=== PATIENT | male | born 1970 | race Caucasian/White ===

== ENCOUNTER 2020-06-24 09:25 | Outpatient (REF) | payer BC, SELFPAY | END 2020-06-24 09:26 | disposition home or self-care (01) | LOC: HO.LAB 09:25 | PROVIDERS: PCP Nurse Practitioner Family; Visit Provider Internal Medicine | DX: Z20.822 Contact with and (suspected) exposure to COVID-19 (principal) | CPT/HCPCS: 36415; C9803; U0003; U0005 ==

== ENCOUNTER 2020-07-06 13:09 | Outpatient (REF) | payer BC, SELFPAY ==
--- NOTE | ~2020-07-06 | XR_ITS ---
EXAMINATION: XR CHEST CLINICAL INFORMATION: Covid 19 COMPARISON: 04/28/2017 TECHNIQUE: 2 views of the chest were obtained. FINDINGS: The lungs are well expanded. There is no focal consolidation, edema, or effusion. No pneumothorax. The cardiomediastinal silhouette is within normal limits. No acute osseous abnormality. XR/XR chest 2V IMPRESSION: Clear lungs.
== END 2020-07-06 13:10 | disposition home or self-care (01) ==
LOC: HO.HMGCX 13:09
PROVIDERS: PCP Nurse Practitioner Family; Visit Provider Nurse Practitioner Family
DX: U07.1 COVID-19 (principal)
CPT/HCPCS: 71046

== ENCOUNTER 2020-07-21 10:30 | Outpatient (REF) | payer BC, SELFPAY ==
--- NOTE | ~2020-07-21 | XR_ITS ---
EXAMINATION: XR CHEST CLINICAL INFORMATION: U07.1 - COVID-19 COMPARISON: Chest radiographs 07/06/2020, 04/28/2017 TECHNIQUE: 2 views of the chest were obtained. FINDINGS: The lungs are clear. There is no airspace consolidation or groundglass opacity. The costophrenic sulci are well-defined. The heart is normal in size and the vascularity is normal. The hilar and mediastinal contours and bony structures are unremarkable. XR/XR chest 2V IMPRESSION: Unremarkable examination.
== END 2020-07-21 10:31 | disposition home or self-care (01) ==
LOC: HO.HMGCX 10:30
PROVIDERS: PCP Nurse Practitioner Family; Visit Provider Nurse Practitioner Family
DX: U07.1 COVID-19 (principal)
CPT/HCPCS: 71046

== ENCOUNTER 2020-09-22 14:00 | Outpatient (RCR) | payer BC, SELFPAY | END 2020-10-24 13:27 | disposition home or self-care (01) | LOC: HO.PT 14:00 | PROVIDERS: Visit Provider Orthopaedic Surgery | DX: M75.20 Bicipital tendinitis, unspecified shoulder (principal); M40.50 Lordosis, unspecified, site unspecified | CPT/HCPCS: 97014; 97110; 97112; 97140; 97161; 97530 ==

== ENCOUNTER 2020-12-03 09:39 | Outpatient (REF) | payer BC, SELFPAY ==
[2020-12-03 12:01] LABS: TSH reflex Free T4 1.04 uIU/mL (0.32-4.0)
[2020-12-03 12:05] LABS: Alanine Aminotransferase 48 U/L (0-40); Alkaline Phosphatase 78 U/L (39-117); Anion Gap 11 (12-20); Aspartate Amino Transferase 37 U/L (5-37); Bilirubin Total 0.5 mg/dL (0.0-1.0); Blood Urea Nitrogen 19 mg/dL (9-16); Calcium 9.1 mg/dL (8.4-10.2); Carbon Dioxide 28 mmol/L (22-29); Chloride 106 mmol/L (96-108); Cholesterol 192 mg/dL; Estimated Glomerular Filt Rate > 60; Glucose Fasting 92 mg/dL (60-99); HDL Cholesterol 30 mg/dL; LDL Cholesterol Calculated 128 mg/dl; Potassium 4.7 mmol/L (3.3-5.1); Sodium 140 mmol/L (135-145); Total Protein 6.8 g/dL (6.5-8.0); Triglycerides 170 mg/dL
[2020-12-03 14:13] LABS: Glucose Urine UA NEG (NEG); Leukocyte Esterase Urine NEG (NEG); Nitrite Urine NEG (NEG); Specific Gravity - Urine <= 1.005 (1.005-1.025); Urine Blood NEG (NEG); Urine Ketones NEG (NEG); Urine Protein NEG (NEG-TRACE)
[2020-12-03 14:15] LABS: Appearance Urine CLEAR; Color Urine YELLOW
== END 2020-12-03 09:40 | disposition home or self-care (01) ==
LOC: HO.HMGCLDS 09:39
PROVIDERS: PCP Nurse Practitioner Family; Visit Provider Nurse Practitioner Family
DX: R97.20 Elevated prostate specific antigen [PSA] (principal); E78.5 Hyperlipidemia, unspecified
CPT/HCPCS: 36415; 80053; 80061; 81003; 84443

== ENCOUNTER 2020-12-17 09:09 | Outpatient (REF) | payer BC, SELFPAY ==
--- NOTE | ~2020-12-17 | US_ITS ---
EXAMINATION: US ABDOMEN COMPLETE CLINICAL INFORMATION: Abnormal levels of other serum enzymes. COMPARISON: None TECHNIQUE: Real-time imaging of the abdominal viscera. FINDINGS: PANCREAS: Largely obscured by overlapping bowel gas. ABDOMINAL AORTA: The proximal, mid, and distal segments are normal in caliber. INFERIOR VENA CAVA: Visualized portions are normal. LIVER: There is diffuse increased liver parenchymal echogenicity. No focal hepatic mass is seen. The liver is normal in size and contour. No biliary ductal dilatation. GALLBLADDER: Normal. The gallbladder is physiologically distended without evidence of stones, sludge, polyps, wall thickening or pericholecystic fluid. COMMON BILE DUCT: Normal in caliber measuring 0.3 cm in diameter. RIGHT KIDNEY: At the lower pole, a 1.1 cm maximal diameter anechoic, simple cyst is seen. No hydronephrosis or renal calculi. The kidney measures 12.5 cm in maximum dimension. LEFT KIDNEY: Normal. No hydronephrosis. No renal calculi or focal parenchymal lesions. The kidney measures 12.7 cm in maximum dimension. SPLEEN: Normal. The spleen measures 11.4 cm in maximum dimension. FREE FLUID: None. US/US abdomen complete IMPRESSION: 1. There is generalized increase in hepatic echotexture, consistent with fatty infiltration or hepatocellular disease. Please correlate clinically. No focal hepatic mass or intrahepatic biliary dilatation is seen. 2. A simple right renal cyst is incidentally noted. 3. Technically limited ultrasound examination of the pancreas.
[2020-12-18 08:09] LABS: HBc Num1 0.07 S/CO (0.00-0.79); Hepatitis A Antibody IgM 0.15 Index (0-0.79); Hepatitis B Core Antibody Nonreactive (Nonreactive); Hepatitis B Surface Antigen Negative (Negative); ~HepC Num1 0.09 S/CO (0.00-0.79); ~Hepatitis A Antibody IgM Nonreactive (Nonreactive); ~Hepatitis C Antibody Nonreactive (Nonreactive)
[2020-12-18 08:18] LABS: HBS Num1 0.65 mIU/mL (0-7.99); ~Hepatitis B Surface Antibody NONREACTIVE (Nonreactive)
== END 2020-12-17 09:10 | disposition home or self-care (01) ==
LOC: HO.HMGCX 09:09
PROVIDERS: PCP Nurse Practitioner Family; Visit Provider Nurse Practitioner Family
DX: R74.8 Abnormal levels of other serum enzymes (principal)
CPT/HCPCS: 36415; 76700; 86704; 86706; 86709; 86803; 87340

== ENCOUNTER → 2021-02-05 15:12 | Outpatient (BNVA) | payer BC, SELFPAY | PROVIDERS: PCP Nurse Practitioner Family; Visit Provider Urology ==

== ENCOUNTER 2021-05-04 06:19 | Outpatient (REF) | payer BC, SELFPAY ==
[2021-05-04 08:23] LABS: Prostate Specific Antigen 6.64 ng/mL (<0.05-4.0)
[2021-05-07 20:52] LABS: Estradiol Ultra Sensitive 23 pg/mL (< OR = 29)
[2021-05-08 19:21] LABS: Testosterone, Free 86.9 pg/mL (35.0-155.0); Testosterone, Total 376 ng/dL (250-1100)
== END 2021-05-04 06:20 | disposition home or self-care (01) ==
LOC: HO.LAB 06:19
PROVIDERS: PCP Nurse Practitioner Family; Visit Provider Urology
DX: Z12.5 Encounter for screening for malignant neoplasm of prostate (principal); E29.1 Testicular hypofunction; R97.20 Elevated prostate specific antigen [PSA]
CPT/HCPCS: 36415; 82670; 84153; 84402; 84403

== ENCOUNTER 2021-05-07 13:40 | Outpatient (REF) | payer BC, SELFPAY ==
[2021-05-07 14:01] LABS: Binax Internal Control QC Valid; Binax Now Covid-19 Ag Negative (Negative)
== END 2021-05-07 13:41 | disposition home or self-care (01) ==
LOC: HO.HMGCLDS 13:40
PROVIDERS: Visit Provider Internal Medicine
DX: Z20.822 Contact with and (suspected) exposure to COVID-19 (principal); J06.9 Acute upper respiratory infection, unspecified
CPT/HCPCS: 36415

== ENCOUNTER → 2021-05-12 15:09 | Outpatient (BNVA) | payer BC, SELFPAY | PROVIDERS: PCP Nurse Practitioner Family; Visit Provider Urology ==

== ENCOUNTER 2021-06-07 08:00 | Day surgery (SDC) | payer BC, SELFPAY ==
[2021-05-04 13:47] VITALS: BMI 29.8
--- NOTE | 2021-06-04 12:58 | P.CONAN_ITS ---
Documented by User: Radha Solorio NP 06/04/21 13:04 HPI - Anesthesia Eval Consult details Narrative: 50yo M for Upper Endoscopy and Colonoscopy [facility] Active Problems Active Problems: All Active Problems (Updated 05/07/21 @ 13:38 by Jatinder Camara MD) Upper respiratory tract infection (Acute) COVID-19 (Acute) Elevated PSA (Acute) Dyslipidemia (Acute) Screening for colon cancer (Acute) External hemorrhoids (Acute) Abnormal heart rhythm (Acute) Elevated liver enzymes (Acute) Hypogonadism in male (Acute) Past Medical History Medical History (Updated 06/07/21 @ 08:26 by Ivelisse Buenrostro RN) Alcohol abuse Anxiety and depression COVID-19 vaccine series completed Elevated cholesterol GERD (gastroesophageal reflux disease) History of COVID-19 Hx of prostatitis Family History Family History Sister Substance abuse Surgical History Surgical History Hx of shoulder surgery Social History Social History Are you a primary hearing healthcare practitioner to a significant other at home: No Do you presently have visiting nurse or other home services: No Patient Tobacco Use Status: Never used Tobacco e-Cigarette/Vaping Use: Never Used Second Hand Smoke Exposure: No Use of substances other than those prescribed or required for medical reasons: No Have you been hit, kicked, punched, or otherwise hurt by someone within the past year? If so, by whom?: No Are you DNR?: No Advance Directives: No Advance Directives Information Provided: Yes (brochure mailed) Advance Directives on File: No Recently lost weight without trying: No Eating poorly because of decreased appetite: No Nutrition Risks: No Nutritional Risk Poor oral hygiene: No Meds Allergies Allergy/AdvReac Type Severity Reaction Status Date / Time No Known Allergies Allergy Verified 05/07/21 13:21 [No Known Allergies*] Home Medications Medication Instructions Recorded Confirmed Last Taken Type alprazolam 0.5 mg 0.5 mg PO BID 12/02/20 05/04/21 Unknown History tablet PRN sertraline 100 mg 100 mg PO DAILY 12/02/20 05/04/21 Unknown History tablet Exam Exam Date and Time: June 04, 2021 1258 Height,Weight and Vital Signs: Height 6 ft Weight 99.79 kg Pertinent Lab Results Pertinent Lab Results: Laboratory Tests 02/08/19 12/03/20 06:45 09:43 WBC 9.2 Hgb 15.7 Hct 47.3 Plt Count 221 Sodium 140 Potassium 4.7 Chloride 106 Carbon Dioxide 28 BUN 19 H Creatinine 1.01 Narrative Narrative: EKG 11/2020 NSR @ 65 Assessment and Plan Assessment Anesthesia Assessment: Chart Reviewed Documented by User: Narinder Caballero 06/07/21 09:56 PMFSH Past Medical History Medical History (Updated 06/07/21 @ 08:26 by Ivelisse Buenrostro RN) Alcohol abuse Anxiety and depression COVID-19 vaccine series completed Elevated cholesterol GERD (gastroesophageal reflux disease) History of COVID-19 Hx of prostatitis Family History Family History Sister Substance abuse Family history of problems with anesthesia: No Surgical History Surgical History Hx of shoulder surgery History of Problems with Anesthesia: No Social History Social History Are you a primary hearing healthcare practitioner to a significant other at home: No Do you presently have visiting nurse or other home services: No Patient Tobacco Use Status: Never used Tobacco e-Cigarette/Vaping Use: Never Used Second Hand Smoke Exposure: No Use of substances other than those prescribed or required for medical reasons: No Have you been hit, kicked, punched, or otherwise hurt by someone within the past year? If so, by whom?: No Are you DNR?: No Advance Directives: No Advance Directives Information Provided: Yes (brochure mailed) Advance Directives on File: No Recently lost weight without trying: No Eating poorly because of decreased appetite: No Nutrition Risks: No Nutritional Risk Poor oral hygiene: No Meds Allergies Allergy/AdvReac Type Severity Reaction Status Date / Time No Known Allergies Allergy Verified 05/07/21 13:21 [No Known Allergies*] Home Medications Medication Instructions Recorded Confirmed Last Taken Type alprazolam 0.5 mg 0.5 mg PO BID 12/02/20 05/04/21 Unknown History tablet PRN sertraline 100 mg 100 mg PO DAILY 12/02/20 05/04/21 Unknown History tablet Exam Airway Mallampati Class: II TM Dist: >3cm Neck ROM: Full Heart: rrr Lungs: bl breath sounds Assessment and Plan Assessment Anesthesia Assessment: Anesthesia Plan Discussed Final Anesthetic Review Family History of Problems with Anesthesia: No History of Problems with Anesthesia: No NPO: Yes Final Preanesthetic Review: Anes Risks/Benef Reviewed Patient Risk: Intermediate Procedure Risk: Intermediate Anesthetic Plan Anesthetic Plan: MAC: Disposition: Standard PACU
[2021-06-07 08:09] VITALS: BP 108/68; PULSE 81; RESP 18; TEMP 36; O2SAT 99
[2021-06-07] MEDS: Lactated Ringers 1,000 ML 100 ML IVCONT (08:48)
[2021-06-07 10:52] VITALS: BP 95/52; PULSE 70; RESP 18; TEMP 36.1; O2SAT 98
--- NOTE | 2021-06-07 10:54 | PM.OP ---
Brief Operative Note Date of Service: 06/07/21 Pre-op diagnosis: GERD, Screening Post-op diagnosis: other (Hiatal hernia, colon polyp) Procedure: EGD with biopsies, Colonoscopy to the cecum and TI with hot snare polypectomy Surgeon: Mike Aguila Anesthesia: MAC Was an Seal Extrusion Operator used for this Procedure?: No Estimated blood loss (mL): 2.0 Pathology: other (A. EG Junction at 35cm B. Colon polyp at 30cm) Condition: stable Disposition: PACU
[2021-06-07 11:07] VITALS: BP 105/63; PULSE 72; RESP 18; O2SAT 98
[2021-06-07 11:22] VITALS: BP 119/78; PULSE 74; RESP 18; TEMP 36.7; O2SAT 98
--- NOTE | 2021-06-07 21:16 | OP_ITS ---
SURGEON: Mike Aguila MD INDICATIONS: The patient presents for evaluation of gastroesophageal reflux and colorectal cancer screening. Full consent has been obtained from him for this, including risks of bleeding and perforation. PREOPERATIVE DIAGNOSIS: Gastroesophageal reflux and colorectal cancer screening. POSTOPERATIVE DIAGNOSIS: PROCEDURE PERFORMED: Esophagogastroduodenoscopy with biopsies and colonoscopy to the cecum and terminal ileum with hot snare polypectomy. ESTIMATED BLOOD LOSS: COMPLICATIONS: ANESTHESIA: Medication used, monitored anesthesia care. ASSISTANTS: SPECIMENS: POSTOPERATIVE DIAGNOSES: Gastroesophageal reflux and colorectal cancer screening, hiatal hernia, colon polyp, diverticulosis, and internal and external hemorrhoids. DESCRIPTION OF PROCEDURE: The patient was placed in the left lateral decubitus position. The Olympus video gastroscope was passed in the posterior oropharynx and upper esophagus under direct vision. The scope was passed slowly to the distal esophagus. The gastroesophageal junction appeared at 35 cm. There was some slight irregularity and erythema, but no evidence of esophagitis nor Donaldson's esophagus. The scope entered into the stomach. There was a moderate-sized hiatal hernia. The hiatal hernia mucosa appeared normal. The scope was advanced to pylorus and the duodenum was cannulated to the descending portion. The duodenum including the bulb appeared normal without mass or ulceration. The scope was withdrawn back in the stomach. The gastric antrum and body appeared normal with good peristalsis. Scope was retroflexed visualizing the proximal stomach carefully, which appeared normal, without any sign of mass or ulceration. The scope was straightened and withdrawn back to the esophagus. Biopsies were obtained at the EG junction at 35 cm. Proximal to this, the esophageal mucosa appeared normal. The scope was withdrawn from the patient. He was turned around for the colonoscopy. The digital rectal exam revealed external hemorrhoidal tissue. The Olympus video pediatric colonoscope was entered into the rectum and advanced easily to the cecum. Once in the cecum, I did identify normal-appearing cecal pouch with appendiceal orifice and a normal-appearing ileocecal valve. The terminal ileum was cannulated and appeared normal. The scope was withdrawn back in the colon. The entire cecum and ileocecal valve appeared normal. The scope was slowly withdrawn assessing all mucosal surfaces carefully. Preparation was excellent. At 30 cm, was an approximately 6 mm polyp, which was removed with a hot snare polypectomy and recovered by suction. The polypectomy site appeared clean, without any sign of residual polyp nor bleeding. I did not visualize any other polyps, colitis, or angiodysplasia. There was a mild amount of sigmoid diverticulosis. In the rectum, the scope was retroflexed visualizing internal hemorrhoids, but no other pathology. The rectal mucosa appeared normal. The scope was straightened and withdrawn from the patient. He tolerated both procedures well and was returned to the recovery area in stable condition. IMPRESSION: 1. Hiatal hernia, gastroesophageal reflux. 2. Colon polyp. 3. Diverticulosis. 4. Internal hemorrhoids. 5. External hemorrhoids. PLAN: The results of the pathology will be checked. If the colon polyp is a tubular adenoma, I would recommend a followup colonoscopy in 5 years. He will continue to use omeprazole as needed for symptomatic control of reflux. As long as things are stable, I do not think he needs to be on it every day. He was advised not to use any aspirin and NSAIDs for 1 week. MD BLAIR Bravo/AQUILES / [phone] MTDJeremy
== END 2021-06-07 11:58 | disposition home or self-care (01) ==
PROVIDERS: PCP Nurse Practitioner Family; Visit Provider Internal Medicine
PROC: (CPT 45385; principal; 2021-06-07 09:10)
DX: Z12.11 Encounter for screening for malignant neoplasm of colon (principal); K63.5 Polyp of colon; K57.30 Diverticulosis of large intestine without perforation or abscess without bleeding; K64.8 Other hemorrhoids; K21.9 Gastro-esophageal reflux disease without esophagitis; K44.9 Diaphragmatic hernia without obstruction or gangrene; F32.9 Major depressive disorder, single episode, unspecified; Z79.51 Long term (current) use of inhaled steroids; Z79.899 Other long term (current) drug therapy
CPT/HCPCS: 45385; 43239; 88305

== ENCOUNTER 2021-06-15 07:32 | Outpatient (REF) | payer BC, SELFPAY ==
[2021-06-15 07:43] VITALS: BP 105/66; PULSE 68; RESP 16; TEMP 36.2; O2SAT 98
[2021-06-15 07:44] VITALS: BMI 28.5
--- NOTE | 2021-06-22 13:43 | W.PM.OPN ---
Operative Note Operative Note Date of Service: 06/15/21 Narrative: Preoperative diagnosis: Elevated PSA Postoperative diagnosis: Elevated PSA Procedure: 1. transrectal ultrasound measurement of prostate 2. transrectal ultrasound-guided pudendal nerve block 3. transrectal ultrasound-guided prostate biopsy 12 core Surgeon: Dr. Sreedhar Valverde Anesthetic: Local Indications for procedure: Elevated PSA 6.4 Procedure: After informed consent was verified, the patient was brought into the procedure area and lay left-hand side down on the table. Patient identity confirmed. Perioperative antibiotics confirmed. Iodine 10cc with Gel was placed per rectum Ultrasound probe was placed per rectum The prostate was measured in 3 dimensions Total volume equals 45 gm There were no cystic structures and no calcifications noted and the prostate was homogeneous in nature A ultrasound-guided pudendal nerve block was performed using 10 cc of 1% lidocaine. 8 cc was placed at the base and 2 cc of the apex. A 12 core biopsy was performed with 6 cores each side. Two cores were taken at the apex, mid and base. Cores were spaced between lateral and medial. He tolerated the procedure well. Was able to ambulate to bathroom after 5 minutes. Printed instructions regarding antibiotic use and common side effects such as low-grade temperature and bleeding were given Pathology: 12 core prostate biopsy.
== END 2021-06-15 07:33 | disposition home or self-care (01) ==
LOC: HO.MS 07:32
PROVIDERS: PCP Nurse Practitioner Family; Visit Provider Urology
PROC: (CPT 55700; principal; 2021-06-15 08:00)
DX: C61 Malignant neoplasm of prostate (principal); R97.20 Elevated prostate specific antigen [PSA]
CPT/HCPCS: 55700; 76942; 88305; 88344

== ENCOUNTER → 2021-06-22 13:07 | Outpatient (BNVA) | payer BC, SELFPAY | PROVIDERS: PCP Nurse Practitioner Family; Visit Provider Urology ==

== ENCOUNTER 2021-07-29 06:29 | Outpatient (REF) | payer BC, SELFPAY ==
[2021-07-29 06:52] LABS: MANUAL DIFF FLAG NO
[2021-07-29 06:56] LABS: Basophils Absolute Auto 0.1 X10*3/uL (0.0-0.2); Basophils Percent Auto 0.8 % (0-2); Eosinophils Absolute Auto 0.4 X10*3/uL (0.0-0.4); Eosinophils Percent Auto 4.5 % (0-4); Hematocrit 42.8 % (42.0-52.0); Hemoglobin 14.4 g/dl (14.0-18.0); Imm Gran Abs Auto 0.02 X10*3/uL (0.00-0.03); Imm Gran Pct Auto 0.3 % (0.0-0.4); Lymphocytes Percent Auto 38.1 % (20-40); Mean Corpuscular HGB Conc 33.6 g/dl (31.0-36.0); Mean Corpuscular Hemoglobin 30.5 pg (27.0-33.0); Mean Corpuscular Volume 90.7 fL (80.0-98.0); Mean Platelet Volume 10.6 fL (9.4-12.4); Monocytes Absolute Auto 0.8 X10*3/uL (0.1-1.2); Neutrophils Absolute Auto 3.7 x10*3/uL (2.0-8.3); Neutrophils Percent Auto 46.3 % (45-73); Platelet Count 234 X10*3/uL (160-400); Red Blood Count 4.72 X10*6/uL (4.60-5.80); Red Cell Distribution Width 12.3 % (11.0-16.0)
[2021-07-29 07:21] LABS: Alanine Aminotransferase 35 U/L (0-40); Albumin Level 4.1 g/dL (3.5-5.0); Alkaline Phosphatase 90 U/L (39-117); Aspartate Amino Transferase 29 U/L (5-37); Bilirubin Direct < 0.2 mg/dL (0.0-0.5); Bilirubin Total 0.4 mg/dL (0.0-1.0); Cholesterol 227 mg/dL; HDL Cholesterol 31 mg/dL; LDL Cholesterol Calculated 144 mg/dl; Triglycerides 260 mg/dL
== END 2021-07-29 06:30 | disposition home or self-care (01) ==
LOC: HO.LAB 06:29
PROVIDERS: PCP Nurse Practitioner Family; Visit Provider Dermatology
DX: L70.0 Acne vulgaris (principal)
CPT/HCPCS: 36415; 80061; 80076; 85025

== ENCOUNTER 2021-10-14 06:34 | Outpatient (REF) | payer BC, SELFPAY ==
[2021-10-14 07:45] LABS: Alanine Aminotransferase 31 U/L (0-40); Albumin Level 4.4 g/dL (3.5-5.0); Alkaline Phosphatase 90 U/L (39-117); Anion Gap 11 (12-20); Aspartate Amino Transferase 33 U/L (5-37); Bilirubin Total 0.5 mg/dL (0.0-1.0); Blood Urea Nitrogen 22 mg/dL (9-16); Calcium 9.9 mg/dL (8.4-10.2); Carbon Dioxide 27 mmol/L (22-29); Chloride 106 mmol/L (96-108); Cholesterol 173 mg/dL; Estimated Glomerular Filt Rate > 60; Glucose Fasting 101 mg/dL (60-99); HDL Cholesterol 37 mg/dL; LDL Cholesterol Calculated 108 mg/dl; Potassium 4.6 mmol/L (3.3-5.1); Sodium 139 mmol/L (135-145); Total Protein 7.4 g/dL (6.5-8.0); Triglycerides 140 mg/dL
[2021-10-14 08:06] LABS: Prostate Specific Antigen 1.27 ng/mL (<0.05-4.0)
== END 2021-10-14 06:35 | disposition home or self-care (01) ==
LOC: HO.LAB 06:34
PROVIDERS: Absent Provider Urology; PCP Nurse Practitioner Family; Visit Provider Nurse Practitioner Family
DX: Z12.5 Encounter for screening for malignant neoplasm of prostate (principal); C61 Malignant neoplasm of prostate; E78.5 Hyperlipidemia, unspecified
CPT/HCPCS: 36415; 80053; 80061; 84153

== ENCOUNTER 2022-02-07 09:41 | Outpatient (REF) | payer BC, SELFPAY ==
[2022-02-08 10:37] LABS: Follicle Stimulating Hormone 7.4 mIU/mL (1.6-8.0)
[2022-02-11 22:21] LABS: Estradiol Ultra Sensitive 29 pg/mL (< OR = 29)
[2022-02-12 11:31] LABS: Testosterone, Free 93.3 pg/mL (35.0-155.0); Testosterone, Total 491 ng/dL (250-1100)
== END 2022-02-07 09:42 | disposition home or self-care (01) ==
LOC: HO.LAB 09:41
PROVIDERS: PCP Nurse Practitioner Family; Visit Provider Urology
DX: C61 Malignant neoplasm of prostate (principal)
CPT/HCPCS: 36415; 82670; 83001; 83002; 84153; 84402; 84403

== ENCOUNTER 2022-04-12 12:14 | Outpatient (REF) | payer BC, SELFPAY ==
[2022-04-12 11:19] VITALS: BMI 28.5
[2022-04-12 11:21] VITALS: BP 120/66; PULSE 64; RESP 16; TEMP 36.3; O2SAT 100
[2022-04-12 11:48] VITALS: BP 117/70; PULSE 63; RESP 16; O2SAT 100
--- NOTE | 2022-04-12 12:52 | P.OP_ITS ---
Operative Note Operative Note Date of Service: 04/12/22 Narrative: Preoperative diagnosis: Epidermal inclusion cysts of sternum Postoperative diagnosis: Same Procedure: Excision of epidermal inclusion cyst of sternum Surgeon: Benji Harris MD Hardwood Floor Layer: None Anesthesia: Sensorcaine 0.5% with epinephrine Indications for procedure: Enlarging epidermal inclusion cyst of sternum Operative findings: 1.5 cm epidermal inclusion cyst of sternum Specimen: Epidermal inclusion cyst Estimated blood loss: Less than 1 mL Complications: None Procedure details: Patient was brought to the minor surgery suite and placed in a supine position. The site of surgery was confirmed by the patient in the mid sternum. After assuring informed consent the skin was prepped Betadine and draped in a sterile fashion. Local anesthesia was then infiltrated around the lesion. Elliptical incision oriented longitudinally was then created with the scalpel. This was carried down through subcutaneous tissue up to the cyst wall. Sharp dissection was then used to dissect the cyst from the surrounding subcutaneous tissue. The lesion was removed intact and sent to pathology for further examination. After assuring hemostasis with light pressure, the skin was reapproximated using interrupted 3-0 Prolene sutures. Sterile dressings consisting of 2 x 2 gauze and Tegaderm were then applied. The patient tolerated the procedure well. He was discharged to home in stable condition.
== END 2022-04-12 12:15 | disposition home or self-care (01) ==
LOC: HO.MS 12:14
PROVIDERS: PCP Nurse Practitioner Family; Visit Provider Surgery
PROC: (CPT 11402; principal; 2022-04-12 11:30)
DX: L72.0 Epidermal cyst (principal)
CPT/HCPCS: 11402; 88304

== ENCOUNTER 2022-08-03 06:17 | Outpatient (REF) | payer BC, SELFPAY ==
[2022-08-03 08:35] LABS: Prostate Specific Antigen 1.75 ng/mL (<0.05-4.0)
== END 2022-08-03 06:18 | disposition home or self-care (01) ==
LOC: HO.LAB 06:17
PROVIDERS: PCP Nurse Practitioner Family; Visit Provider Urology
DX: Z12.5 Encounter for screening for malignant neoplasm of prostate (principal); C61 Malignant neoplasm of prostate
CPT/HCPCS: 36415; 84153

== ENCOUNTER → 2022-08-09 14:06 | Outpatient (BNVA) | payer BC, SELFPAY | PROVIDERS: PCP Nurse Practitioner Family; Visit Provider Urology | DX: Z13.89 Encounter for screening for other disorder (principal) ==

== ENCOUNTER 2022-12-09 06:20 | Outpatient (REF) | payer BC, SELFPAY ==
[2022-12-09 08:00] LABS: Blood Urea Nitrogen 18 mg/dL (9-16); Estimated Glomerular Filt Rate > 60
[2022-12-09 08:23] LABS: Prostate Specific Antigen 1.79 ng/mL (<0.05-4.0)
[2022-12-15 17:13] LABS: Testosterone, Total 446 ng/dL (250-1100)
== END 2022-12-09 06:21 | disposition home or self-care (01) ==
LOC: HO.LAB 06:20
PROVIDERS: PCP Nurse Practitioner Family; Visit Provider Urology
DX: Z12.5 Encounter for screening for malignant neoplasm of prostate (principal); R39.15 Urgency of urination; C61 Malignant neoplasm of prostate
CPT/HCPCS: 36415; 82565; 84153; 84403; 84520

== ENCOUNTER 2022-12-15 10:15 | Outpatient (AMB) | payer BC, SELFPAY ==
--- NOTE | 2022-12-15 10:22 | MHC.OFFVIS ---
Intake Intake Visit Reasons: 4m/MRI(No psa Dr Aware) Intake Note: Patient is present for Follow Up MRI/PSA Urology Med: Finasteride, Antibiotic Allergy:None Blood Thinner: None Pharmacy: [facility] Allergies No Known Allergies [No Known Allergies*] Allergy (Verified 12/15/22 10:29) HPI HPI Comments History of Present Illness Details Israel is a pleasant male. He is a patient with Dr Simon. He is seen for the following urologic conditions - elevated testosterone - elevated PSA - urinary urgency Continue good response to finasteride every other day Discussed MRI results with small volume prostate cancer location consistent with prior biopsy Main Current complaint urinary urge Trial daily tadalafil 02/16 Testosterone 1381, PSA 3.6 PSA 10/19 4.3, 05/22 6.6 T 376, 10/20 1.3, 02/19 1.3 T 500, 08/21 1.7, 12/21 1.8 T Pend Elevated PSA Discussion today regarding impact of testosterone stimulators on PSA Labs - 02/19 T 491 GIOVANY with boggy prostate Prostate Cancer - Low volume / cores, Low grade 3+3 - June [address] Valverde PSA at diagnosis 6.6, Volume 45g T1c 12/21 MRI - 35 g gland, 6 mm left peripheral apex lesion PI-RADS 4 - location consistent with prior biopsy June 2021 Histologic type: Adenocarcinoma, Acinar type Histologic grade Luis score: 3+3=6 DAVID 5% Grade group: 1 Tumor quantitation: Number cores positive: 1? Total number of cores: 12 Periprostatic fat inv.: Not identified, Seminal vesicle inv.: Not identified, Perineural inv.: Not identified, LVI: Not identified REPLACED BY [facility] Medical History Alcohol abuse Anxiety and depression COVID-19 vaccine series completed Elevated cholesterol GERD (gastroesophageal reflux disease) History of COVID-19 Hx of prostatitis Surgical History Hx of shoulder surgery Family History Sister Substance abuse Social History Are you a primary customer care manager to a significant other at home: No Do you presently have visiting nurse or other home services: No Patient Tobacco Use Status: Never used Tobacco e-Cigarette/Vaping Use: Never Used Second Hand Smoke Exposure: No Review of Systems Const Denies chills and Denies fever(s) Card Reports no additional complaints and Denies syncope Resp Denies cough GI Denies abdominal pain and Denies heartburn Reports as per HPI and Denies change in libido Neuro Denies syncope Psych Denies change in libido Endo Denies change in libido Physical Exam Const General: cooperative, healthy appearing, comfortable and no acute distress Orientation/consciousness: patient oriented x3 HEENT Face and sinus: Yes normal facial exam Mouth: moist mucous membranes Neck Neck: Yes normal visual inspection, Yes full ROM and Yes trachea midline Chest Chest palpation & inspection: normal inspection of the chest Resp Effort & Inspection: normal respiratory effort, able to speak in complete sentences and no respiratory distress GI Inspection: Yes normal to inspection Back/Spine/Pelvis Cervical Spine: normal cervical lordosis Thoracic/Lumbar Spine: thoracic and lumbar spine normal to inspection Skin General skin exam: no rashes or lesions noted Neuro General: patient oriented x3, gait normal, tone normal and moves all extremities Extrem General: Yes normal to inspection and Yes capillary refill normal Assessment & Plan Assessment & Plan (1) Urinary urgency: Code(s): R39.15 - Urgency of urination (2) Prostate cancer: Comment: 06/22 low-grade low volume Code(s): C61 - Malignant neoplasm of prostate Plan 3 month follow-up Medications: New tadalafil 5 mg PO DAILY 90 days 90 tabs 0RF urge R39.15 - Urgency of urination Patient Instructions: Imaging studies, laboratory and physical exam results were discussed and reviewed in detail. No major barriers to patient understanding were identified. An opportunity to ask questions regarding the treatment plan was provided. All questions were answered. The patient expressed understanding and agreement with the above treatment plan. The patient is aware they should contact our office by phone for worsening of their current condition or the appearance of new urologic symptoms. Compliance is encouraged with any medications and followup testing that is ordered. It is a privilege to participate in the urologic care of your patient. If you have any questions or concerns regarding treatment for the above conditions, or other urologic issues, please do not hesitate to contact me. The office telephone contact is [phone]. This note is constructed using voice recognition software. While every effort has been made to ensure accuracy dental ceramist errors may have been included. Yours sincerely, Dr Sreedhar Valverde MD, [facility] - Urology Providers of Expert, Compassionate Care for the Genitourinary System Coding Level of Care Code Est Pt Level 4 (02208) Diagnoses Urinary urgency R39.15 Prostate cancer C61
== END 2022-12-15 10:54 | disposition home or self-care (01) ==
PROVIDERS: PCP Nurse Practitioner Family; Visit Provider Urology
DX: R39.15 Urgency of urination (principal); C61 Malignant neoplasm of prostate
CPT/HCPCS: 99213

== ENCOUNTER → 2022-12-15 10:15 | Outpatient (BNVA) | payer BC, SELFPAY | PROVIDERS: Visit Provider Urology ==

== ENCOUNTER 2023-01-11 09:41 | Outpatient (AMB) | payer BC, SELFPAY ==
[2023-01-11 10:04] VITALS: BP 104/78; PULSE 61; O2SAT 97; BMI 29.6
--- NOTE | 2023-01-11 10:04 | MHC.PC.OV ---
Vital Signs 01/11/23 10:04 Height 6 ft Weight 218 lb 2 oz BMI 29.6 BP 104/78 Blood Pressure Location Rt brachial Position Sitting Pulse 61 Pulse Source Pulse Oximeter Pulse Oximetry (%) 97 Oxygen Delivery Method Room Air Intake Visit Reasons: Med review Allergies No Known Allergies [No Known Allergies*] Allergy (Verified 01/11/23 10:06) Tobacco use date assessed: 01/11/23 Dental Screening Dental Screen Date: 01/11/23 Did you have a dental visit in the last 12 months?: Yes Did you have a dental problem in the last 6 months where you did not have access to dental care?: No Was dental information given to patient?: Patient has dentist HPI Med review HPI Details Pt is here for a PE. Will order labs. Colon screen is up to date. PSA is up to date, sees urology due to prostate cancer. [facility] Medical History Alcohol abuse Anxiety and depression COVID-19 vaccine series completed Elevated cholesterol GERD (gastroesophageal reflux disease) History of COVID-19 Hx of prostatitis Surgical History Hx of shoulder surgery Family History Sister Substance abuse Social History Housing: Apartment Are you a primary customer care team coach to a significant other at home: No Do you presently have visiting nurse or other home services: No Patient Tobacco Use Status: Never used Tobacco e-Cigarette/Vaping Use: Never Used Second Hand Smoke Exposure: No service: No Current occupational status: employed Current occupation: [employer] Current occupational exposures/hazards: No Cognitive needs: No Hearing needs: No Vision needs: No Questionnaire Thrive Questionnaire Date Thrive assessed: 12/02/20 Review of Systems Const Denies chills and Denies fever(s) Eyes Denies blurry vision ENT Denies vertigo, Denies dizziness and Denies sore throat Card Denies chest pain at rest, Denies chest pain with activity, Denies diaphoresis, Denies dyspnea and Denies dyspnea on exertion Resp Denies cough, Denies dyspnea, Denies dyspnea on exertion and Denies wheezing GI Denies abdominal pain, Denies melena, Denies hematochezia, Denies constipation, Denies diarrhea and Denies loose stools Denies hematuria Musc Denies numbness and Denies tingling Skin/Breast Denies lesions Neuro Denies vertigo, Denies dizziness, Denies numbness and Denies tingling Psych Denies anxiety, Denies depression, Denies homicidal ideation, Denies suicidal ideation and Denies other (substance abuse) Aller/Immun Denies wheezing Physical exam (Primary Care) Vital Signs: Last Vital Signs Pulse 61 01/11/23 10:04 BP 104/78 01/11/23 10:04 Pulse Ox 97 01/11/23 10:04 Oxygen Delivery Method Room Air 01/11/23 10:04 BMI result Body Mass Index 29.6 Tobacco/Smoking Status: Tobacco use Status Tobacco use date assessed 01/11/23 01/11/23 10:09 Patient Tobacco Use Status Never used Tobacco 01/11/23 10:09 e-Cigarette/Vaping Use Never Used 01/11/23 10:09 Thrive Assessment: Date of Thrive Assessment Date Thrive assessed 12/02/20 01/11/23 10:09 Const General: cooperative Nutritional Appearance: well nourished Orientation/consciousness: patient oriented x3 HENMT Head: Yes normal to inspection, Yes normocephalic and Yes atraumatic Ears: TM's normal bilaterally Eyes General: appearance normal, both eyes and all related structures Alignment and Position: alignment normal and position normal Neck Neck: Yes normal visual inspection and Yes no lymphadenopathy Thyroid: Thyroid normal Resp Effort & Inspection: normal respiratory effort Auscultation: clear to auscultation bilaterally Cardio Rate: regular rate Rhythm: regular rhythm Heart sounds: S1 normal heart sound present, S2 normal heart sound present and no murmurs GI Palpation (GI): Soft to palpation and nontender Auscultation: normal bowel sounds Male General Exam: Yes normal external exam Penis: normal penis Scrotum: scrotum normal, testes descended bilaterally and no inguinal hernias Testes: no testicular mass Skin Rashes: no rashes Neuro General: patient oriented x3, moves all extremities, no focal motor deficits and deep tendon reflexes 2+ bilaterally Romberg Test: Negative Psych Appearance: grossly normal Mental Status: mental status grossly normal Speech and movement: Normal speech and movement present Affect: normal affect Attitude: cooperative Thought process: Normal thought process present Thought content: Normal thought content present Insight: Good insight present (Psych) Judgement: Good judgement present (Psych) Assessment and Plan Assessment & Plan (1) Physical exam: Code(s): Z00.00 - Encounter for general adult medical examination without abnormal findings Plan: Labs ordered Plan The patient agreed to the use of a medical insurance claims processor for this encounter. Scribed for JOSE Cabrera by Nara Ortega medical insurance claims processor, on 01/11/2023 at 10:20 EST. Orders: Orders Lipid Panel Today Z00.00 - Encounter for general adult medical examination without abnormal findings Complete Blood Count Auto Diff Today Z00.00 - Encounter for general adult medical examination without abnormal findings Comprehensive [place]. Panel Fast Today Z00.00 - Encounter for general adult medical examination without abnormal findings TSH reflex Free T4 Today Z00.00 - Encounter for general adult medical examination without abnormal findings UA CC w/rflx Micro + Cult Today Z00.00 - Encounter for general adult medical examination without abnormal findings Coding Level of Care Code Est Pt Prev Care 40-64y(30990) Diagnoses Physical exam Z00.00
== END 2023-01-11 10:43 | disposition home or self-care (01) ==
PROVIDERS: PCP Nurse Practitioner Family; Visit Provider Nurse Practitioner Family
DX: Z00.00 Encounter for general adult medical examination without abnormal findings (principal)
CPT/HCPCS: 99396

== ENCOUNTER 2023-03-16 06:27 | Outpatient (REF) | payer BC, SELFPAY ==
[2023-03-16 06:38] LABS: MANUAL DIFF FLAG NO
[2023-03-16 07:41] LABS: Basophils Absolute Auto 0.1 X10*3/uL (0.0-0.2); Basophils Percent Auto 0.9 % (0-2); Eosinophils Absolute Auto 0.4 X10*3/uL (0.0-0.4); Eosinophils Percent Auto 4.9 % (0-4); Hematocrit 43.1 % (42.0-52.0); Hemoglobin 14.2 g/dl (14.0-18.0); Imm Gran Abs Auto 0.01 X10*3/uL (0.00-0.03); Imm Gran Pct Auto 0.1 % (0.0-0.4); Lymphocytes Absolute Auto 3.4 X10*3/uL (1.2-4.9); Lymphocytes Percent Auto 44.4 % (20-40); Mean Corpuscular HGB Conc 32.9 g/dl (31.0-36.0); Mean Corpuscular Hemoglobin 29.5 pg (27.0-33.0); Mean Corpuscular Volume 89.4 fL (80.0-98.0); Monocytes Absolute Auto 0.9 X10*3/uL (0.1-1.2); Monocytes Percent Auto 11.3 % (2-11); Neutrophils Absolute Auto 2.9 x10*3/uL (2.0-8.3); Neutrophils Percent Auto 38.4 % (45-73); Platelet Count 235 X10*3/uL (160-400); Red Blood Count 4.82 X10*6/uL (4.60-5.80); Red Cell Distribution Width 12.4 % (11.0-16.0); White Blood Count 7.5 X10*3/uL (4.8-10.8)
[2023-03-16 08:10] LABS: Alanine Aminotransferase 47 U/L (0-40); Albumin Level 4.1 g/dL (3.5-5.0); Alkaline Phosphatase 78 U/L (39-117); Anion Gap 9 (12-20); Aspartate Amino Transferase 34 U/L (5-37); Bilirubin Total 0.4 mg/dL (0.0-1.0); Blood Urea Nitrogen 19 mg/dL (9-16); Calcium 9.5 mg/dL (8.4-10.2); Carbon Dioxide 29 mmol/L (22-29); Chloride 107 mmol/L (96-108); Cholesterol 166 mg/dL (<200); Estimated Glomerular Filt Rate > 60; Glucose Fasting 100 mg/dL (60-99); HDL Cholesterol 33 mg/dL (>40); LDL Cholesterol Calculated 79 mg/dL (<100); Potassium 4.3 mmol/L (3.3-5.1); Sodium 141 mmol/L (135-145); Total Protein 7.1 g/dL (6.5-8.0); Triglycerides 271 mg/dL (<150)
[2023-03-16 08:27] LABS: TSH reflex Free T4 1.76 uIU/mL (0.32-4.0)
[2023-03-16 13:50] LABS: Appearance Urine Clear; Color Urine Yellow; Glucose Urine UA Negative (Negative); Leukocyte Esterase Urine Negative (Negative); Nitrite Urine Negative (Negative); PH 7.5 (5.0-9.0); Specific Gravity - Urine <= 1.005 (1.005-1.025); Urine Blood Negative (Negative); Urine Ketones Negative (Negative); Urine Protein Negative (Neg-Trace)
== END 2023-03-16 06:28 | disposition home or self-care (01) ==
LOC: HO.LAB 06:27
PROVIDERS: PCP Nurse Practitioner Family; Visit Provider Urology
DX: Z00.00 Encounter for general adult medical examination without abnormal findings (principal); C61 Malignant neoplasm of prostate; Z12.5 Encounter for screening for malignant neoplasm of prostate; E78.5 Hyperlipidemia, unspecified; Z13.29 Encounter for screening for other suspected endocrine disorder
CPT/HCPCS: 36415; 80053; 80061; 81003; 84153; 84443; 85025

== ENCOUNTER 2023-03-21 15:06 | Outpatient (AMB) | payer BC, SELFPAY ==
--- NOTE | 2023-03-21 15:06 | MHC.OFFVIS ---
Intake Intake Visit Reasons: 3m PSA Intake Note: Patient is Present for Telephone Follow Up Urology Med: Finasteride, Tadalafil Antibiotic Allergy: None Blood Thinner: None Allergies No Known Allergies [No Known Allergies*] Allergy (Verified 01/11/23 10:06) Medication List - Last Reconciled 03/21/23 by Sreedhar Valverde MD alprazolam 0.5 mg PO BID PRN finasteride 5 mg PO DAILY 90 days rosuvastatin (Crestor) 10 mg PO DAILY 90 days sertraline 100 mg PO DAILY tadalafil 5 mg PO DAILY 90 days HPI HPI Comments History of Present Illness Details Israel is a pleasant male. He is a patient with Dr Simon. He is seen for the following urologic conditions - elevated testosterone - elevated PSA - urinary urgency Good response to daily tadalafil for control of bladder urge Like to continue 02/16 Testosterone 1381, PSA 3.6 PSA 10/19 4.3, 05/22 6.6 T 376, 10/20 1.3, 02/19 1.3 T 500, 08/21 1.7, 12/21 1.8 T Pend, 03/23 1.3 450 Prescriptions provided Elevated PSA Discussion today regarding impact of testosterone stimulators on PSA Labs - 02/19 T 491 GIOVANY with boggy prostate Prostate Cancer - Low volume / cores, Low grade 3+3 - June [address] Valverde PSA at diagnosis 6.6, Volume 45g T1c 12/21 MRI - 35 g gland, 6 mm left peripheral apex lesion PI-RADS 4 - location consistent with prior biopsy June 2021 Histologic type: Adenocarcinoma, Acinar type Histologic grade Luis score: 3+3=6 DAVID 5% Grade group: 1 Tumor quantitation: Number cores positive: 1? Total number of cores: 12 Periprostatic fat inv.: Not identified, Seminal vesicle inv.: Not identified, Perineural inv.: Not identified, LVI: Not identified PFSH Medical History Alcohol abuse Anxiety and depression COVID-19 vaccine series completed Elevated cholesterol GERD (gastroesophageal reflux disease) History of COVID-19 Hx of prostatitis Surgical History Hx of shoulder surgery Family History Sister Substance abuse Social History Housing: Apartment Are you a primary child care education coordinator to a significant other at home: No Do you presently have visiting nurse or other home services: No Patient Tobacco Use Status: Never used Tobacco e-Cigarette/Vaping Use: Never Used Second Hand Smoke Exposure: No service: No Current occupational status: employed Current occupation: [employer] Current occupational exposures/hazards: No Cognitive needs: No Hearing needs: No Vision needs: No Review of Systems Const All systems reviewed & are unremarkable except as noted in HPI and below Denies chills and Denies fever(s) Card Reports no additional complaints and Denies syncope Resp Denies cough GI Denies abdominal pain and Denies heartburn Reports as per HPI and Denies change in libido Musc Reports no additional complaints Neuro Denies syncope Psych Denies change in libido Endo Denies change in libido Physical Exam Telemedicine evaluation Appropriate responses Regular breathing rate and rhythm HEENT Head: Yes normal to inspection Ears: hearing grossly normal bilaterally Eyes General: appearance normal, both eyes and all related structures Neck Neck: Yes normal visual inspection Chest Chest palpation & inspection: normal inspection of the chest Resp Effort & Inspection: normal respiratory effort and able to speak in complete sentences Assessment & Plan Assessment & Plan (1) Prostate cancer: Comment: 06/22 low-grade low volume Code(s): C61 - Malignant neoplasm of prostate (2) Urinary urgency: Code(s): R39.15 - Urgency of urination (3) Hypogonadism in male: Code(s): E29.1 - Testicular hypofunction Plan Six month follow-up Orders: Orders Prostate Specific Antigen 6 Months C61 - Malignant neoplasm of prostate Medications: Refilled finasteride 5 mg PO DAILY 90 tabs 1RF 90 days C61 - Malignant neoplasm of prostate, N40.1 - Benign prostatic hyperplasia with lower urinary tract symptoms, N13.8 - Other obstructive and reflux uropathy, R33.9 - Retention of urine, unspecified tadalafil 5 mg PO DAILY 90 tabs 1RF urge 90 days R39.15 - Urgency of urination Patient Instructions: Imaging studies, laboratory and physical exam results were discussed and reviewed in detail. No major barriers to patient understanding were identified. An opportunity to ask questions regarding the treatment plan was provided. All questions were answered. The patient expressed understanding and agreement with the above treatment plan. The patient is aware they should contact our office by phone for worsening of their current condition or the appearance of new urologic symptoms. Compliance is encouraged with any medications and followup testing that is ordered. It is a privilege to participate in the urologic care of your patient. If you have any questions or concerns regarding treatment for the above conditions, or other urologic issues, please do not hesitate to contact me. The office telephone contact is [phone]. This note is constructed using voice recognition software. While every effort has been made to ensure accuracy internist medical doctor md errors may have been included. Yours sincerely, Dr Sreedhar Valverde MD, [facility] - Urology Providers of Expert, Compassionate Care for the Genitourinary System Telehealth Telehealth Location of provider rendering services: practice address Location of patient: address on file Patient Identification confirmed using: Name, : Yes Telehealth method: video Patient verbally consented to treatment: Yes Patient verbally consented to billing insurance company: Yes Patient informed of any privacy concerns related to visit: Yes Coding Level of Care Code Est Pt Level 3 (81046) Diagnoses Prostate cancer C61 Urinary urgency R39.15 Hypogonadism in male E29.1
== END 2023-03-21 15:57 | disposition home or self-care (01) ==
LOC: HO.HUSH 15:06
PROVIDERS: PCP Nurse Practitioner Family; Visit Provider Urology
DX: C61 Malignant neoplasm of prostate (principal); R39.15 Urgency of urination; E29.1 Testicular hypofunction
CPT/HCPCS: 99213

== ENCOUNTER → 2023-03-21 15:06 | Outpatient (BNVA) | payer BC, SELFPAY | PROVIDERS: PCP Nurse Practitioner Family; Visit Provider Urology ==

== ENCOUNTER → 2023-04-06 08:41 | Outpatient (AMB) | payer BC, SELFPAY ==
--- NOTE | 2023-04-06 07:17 | A.OFFPC_ITS ---
Intake Visit Reasons: Discuss labs-Iphone Allergies No Known Allergies [No Known Allergies*] Allergy (Verified 01/11/23 10:06) Medication List - Last Reconciled 04/06/23 by HEIDI Henderson- alprazolam 0.5 mg PO BID PRN finasteride 5 mg PO DAILY 90 days rosuvastatin (Crestor) 10 mg PO DAILY 90 days sertraline 100 mg PO DAILY tadalafil 5 mg PO DAILY 90 days Tobacco use date assessed: 01/11/23 HPI Discuss labs-Iphone HPI Details Dyslipidemia: Pt is currently taking rosuvastatin 10mg. Pt's recent trigs were elevated. He would not like to start a new medication for this. Pt will work on his diet. Will repeat labs in 2 months. Denies chest pain, shortness of breath, headache, dizziness, and blurred vision. [facility] Medical History Alcohol abuse Anxiety and depression COVID-19 vaccine series completed Elevated cholesterol GERD (gastroesophageal reflux disease) History of COVID-19 Hx of prostatitis Surgical History Hx of shoulder surgery Family History Sister Substance abuse Social History Housing: Apartment Are you a primary certified social workers in health care to a significant other at home: No Do you presently have visiting nurse or other home services: No Patient Tobacco Use Status: Never used Tobacco e-Cigarette/Vaping Use: Never Used Second Hand Smoke Exposure: No service: No Current occupational status: employed Current occupation: [employer] Current occupational exposures/hazards: No Cognitive needs: No Hearing needs: No Vision needs: No Questionnaire Thrive Questionnaire Date Thrive assessed: 12/02/20 Review of Systems Const Reports as per HPI Physical exam (Primary Care) Tobacco/Smoking Status: Tobacco use Status Tobacco use date assessed 01/11/23 04/06/23 07:18 Patient Tobacco Use Status Never used Tobacco 04/06/23 07:18 e-Cigarette/Vaping Use Never Used 04/06/23 07:18 Thrive Assessment: Date of Thrive Assessment Date Thrive assessed 12/02/20 04/06/23 07:18 Const General: cooperative Orientation/consciousness: patient oriented x3 Neuro General: patient oriented x3 Psych Appearance: grossly normal Mental Status: mental status grossly normal Speech and movement: Clear speech present Affect: normal affect Attitude: cooperative Thought process: Normal thought process present Thought content: Normal thought content present Insight: Good insight present (Psych) Judgement: Good judgement present (Psych) Telehealth Telehealth Location of provider rendering services: practice address Location of patient: address on file Patient Identification confirmed using: Name, : Yes Telehealth method: video Patient verbally consented to treatment: Yes Patient verbally consented to billing insurance company: Yes Patient informed of any privacy concerns related to visit: Yes Minutes spent on Phone/Video with Pt.: 5 Assessment and Plan Assessment & Plan (1) Dyslipidemia: Code(s): E78.5 - Hyperlipidemia, unspecified Plan: Labs ordered (2) High triglycerides: Code(s): E78.1 - Pure hyperglyceridemia Plan: Labs ordered Plan The patient agreed to the use of a auditor medical claims for this encounter. Scribed for HEIDI Cabrera-ARCHIE by Nara Ortega auditor medical claims, on 04/06/2023 at 07:15 EST. Orders: Orders Comprehensive [place]. Panel Fast Today E78.1 - Pure hyperglyceridemia, E78.5 - Hyperlipidemia, unspecified Lipid Panel Today E78.1 - Pure hyperglyceridemia, E78.5 - Hyperlipidemia, unspecified Coding Level of Care Code Tele Est Pt Level 3 (31907) Diagnoses Dyslipidemia E78.5 High triglycerides E78.1
== END | disposition home or self-care (01) ==
LOC: HO.HMGC 08:35
PROVIDERS: PCP Nurse Practitioner Family; Visit Provider Nurse Practitioner Family
DX: E78.5 Hyperlipidemia, unspecified (principal); E78.1 Pure hyperglyceridemia
CPT/HCPCS: 99213

== ENCOUNTER 2023-05-04 15:47 | Outpatient (REF) | payer BC, SELFPAY ==
--- NOTE | ~2023-05-04 | XR_ITS ---
EXAMINATION: XR LUMBOSACRAL SPINE CLINICAL INFORMATION: Low back pain COMPARISON: Lumbar spine x-ray on 01/15/2008 TECHNIQUE: Three views of the lumbosacral spine. FINDINGS: The visualized lumbar vertebrae show normal alignment. There is mild superior L2 vertebral endplate depression. Small sharp anterior superior L2 and L3 syndesmophytes are present. Intervertebral disc spaces are normal. XR/XR lumbar spine 2-3V IMPRESSION: Possible interval development of mild superior L2 vertebral endplate compression fracture, of uncertain acuity.
--- NOTE | ~2023-05-04 | XR_ITS ---
EXAMINATION: XR HIP, RIGHT CLINICAL INFORMATION: Right hip pain COMPARISON: None available. TECHNIQUE: Two views of the right hip. FINDINGS: BONES: Bony structures are intact. A radiolucent lesion with sclerotic rim is seen in lateral superior right femoral neck. There is no focal bone destruction or periosteal reaction seen. JOINTS: Alignment of hip joint is normal. SOFT TISSUE: Soft tissue is normal. No radiopaque foreign body or abnormal air collection is seen. XR/XR hip RT min 2V IMPRESSION: 1. Findings are compatible with herniation pit or unicameral simple cyst in right femoral neck. 2. No fracture or dislocation or signs of avascular necrosis are seen.
== END 2023-05-04 15:48 | disposition home or self-care (01) ==
LOC: HO.XRAY 15:47
PROVIDERS: PCP Nurse Practitioner Family; Visit Provider Nurse Practitioner Family
DX: M25.551 Pain in right hip (principal); M54.50 Low back pain, unspecified
CPT/HCPCS: 72100; 73502

== ENCOUNTER 2023-06-05 08:15 | Outpatient (AMB) | payer BC, SELFPAY ==
[2023-06-05 08:28] VITALS: BP 130/82; PULSE 80; TEMP 36.9; O2SAT 96; BMI 29.2
--- NOTE | 2023-06-05 08:28 | AM.OFFWIN_ITS ---
Intake Vital Signs 06/05/23 08:28 Height 6 ft Weight 215 lb BMI 29.2 BP 130/82 Blood Pressure Location Rt brachial Position Sitting Pulse 80 Pulse Source Pulse Oximeter Temp 98.5 F Temp Source Oral Pulse Oximetry (%) 96 Oxygen Delivery Method Room Air Intake Visit Reasons: EP Cough, Congestion, body ache [phone] Intake Note: pt is here for c.o cough, congestion, body aches, chills, since monday night. patient is requesting covid swab Patient Tobacco Use Status: Never used Tobacco Allergies No Known Allergies [No Known Allergies*] Allergy (Verified 06/05/23 08:29) Do you need a note to return to daycare/school/sports/work: Yes HPI HPI Comments History of Present Illness Details Patient presents to the walk in for 3 days cough, congestion, fatigue, bodyaches. Requesting covid swab, states was at a large event prior to symptoms starting Denies fever, chest pain, shortness of breath, palpitations, syncope, weakness Denies headache, ear pain, sore throat. Has been taking OTC medications with minimal improvement. Requesting work note PFSH Medical History Alcohol abuse Anxiety and depression COVID-19 vaccine series completed Elevated cholesterol GERD (gastroesophageal reflux disease) History of COVID-19 Hx of prostatitis Surgical History Hx of shoulder surgery Family History Sister Substance abuse Social History Housing: Apartment Are you a primary critical care technician to a significant other at home: No Do you presently have visiting nurse or other home services: No Patient Tobacco Use Status: Never used Tobacco e-Cigarette/Vaping Use: Never Used Second Hand Smoke Exposure: No service: No Current occupational status: employed Current occupation: [employer] Current occupational exposures/hazards: No Cognitive needs: No Hearing needs: No Vision needs: No Review of Systems Const All systems reviewed & are unremarkable except as noted in HPI and below Physical Exam Vital Signs: Last Vital Signs Temp 98.5 F 06/05/23 08:28 Pulse 80 06/05/23 08:28 BP 130/82 06/05/23 08:28 Pulse Ox 96 06/05/23 08:28 Oxygen Delivery Method Room Air 06/05/23 08:28 BMI result Body Mass Index 29.2 General: awake, alert, oriented. Answers questions appropriately. Fully engaged in examination. Skin: warm, dry, intact HEENT: TMs intact bilaterally, no erythema or exudate. Posterior pharynx without erythema or exudate. Sclera without icterus or injection. Cardiac: External chest normal in appearance. Respiratory: +cough. LSCTAB. Abdomen: without gross distension. Neurological: Oriented to person, place, time and situation. Thought process intact. Psychiatric: Appropriate mood and affect. Good judgment and insight. Assessment & Plan Assessment & Plan (1) Cough: Code(s): R05.9 - Cough, unspecified (2) Upper respiratory tract infection: Code(s): J06.9 - Acute upper respiratory infection, unspecified Plan URI, no abx warranted. [facility]ax[facility] Covid-19 Ag swab ordered, results pending. Patient will wait for results. Benzonatate 100mg po bid as needed Rest, drink plenty of fluids, tylenol or motrin as needed. Follow up with pcp or in clinic for any new or worsening symptoms. Work note provided Go to ER for shortness of breath, chest pain, palpitations, weakness, dizziness. Orders: Orders [facility]ax[facility] Covid-19 Ag Today R05.9 - Cough, unspecified Medications: New benzonatate 100 mg PO BID PRN 20 caps 0RF cough Coding Level of Care Code Est Pt Level 4 (29737) Diagnoses Cough R05.9 Upper respiratory tract infection J06.9
== END 2023-06-05 09:22 | disposition home or self-care (01) ==
PROVIDERS: PCP Nurse Practitioner Family; Visit Provider Registered Nurse Emergency
DX: R05.9 Cough, unspecified (principal); J06.9 Acute upper respiratory infection, unspecified
CPT/HCPCS: 99213

== ENCOUNTER 2023-06-05 09:04 | Outpatient (REF) | payer BC, SELFPAY ==
[2023-06-05 09:35] LABS: Binax Internal Control QC Valid; Binax Now Covid-19 Ag Positive (Negative); Binax Performed by: HO.BONILM
== END 2023-06-05 09:05 | disposition home or self-care (01) ==
LOC: HO.HMGCLDS 09:04
PROVIDERS: PCP Nurse Practitioner Family; Visit Provider Registered Nurse Emergency
DX: Z11.52 Encounter for screening for COVID-19 (principal); R05.9 Cough, unspecified
CPT/HCPCS: 87811

== ENCOUNTER 2023-06-26 09:18 | Outpatient (AMB) | payer BC, SELFPAY ==
--- NOTE | 2023-06-26 10:32 | MHC.OFFWIV ---
Intake Vital Signs 06/26/23 10:40 Weight 99.053 kg BP 124/80 Blood Pressure Location Rt brachial Position Sitting Pulse 68 Pulse Source Pulse Oximeter Temp 98.1 F Temp Source Oral Pulse Oximetry (%) 95 Oxygen Delivery Method Room Air Intake Visit Reasons: EP congestion sinus pain 413 Intake Note: Patient here because tested positive for covid on jun 05 and still is not feeling any better Patient Tobacco Use Status: Never used Tobacco Allergies No Known Allergies [No Known Allergies*] Allergy (Verified 06/26/23 10:33) Do you need a note to return to daycare/school/sports/work: No HPI HPI Comments History of Present Illness Details [age] year old male presents w/ cough, congestion, fatigue, malaise, myalgias X 1 month was covid + on jun 05, 2023 still having symptoms. Has taken benzonate w/ little to no relief. Denies cp, nausea, vomiting, headache, vision changes, dizziness, abd pain. PE RLL w/ faint crackles Likely post viral bronchitis vs pna. Unlikely pe, acs, dissection. Plan- doxy, pred, cough syrup, albuterol PFSH Medical History Hx of prostatitis COVID-19 vaccine series completed History of COVID-19 Elevated cholesterol GERD (gastroesophageal reflux disease) Anxiety and depression Alcohol abuse Surgical History Hx of shoulder surgery Family History Sister Substance abuse Social History Housing: Apartment Are you a primary resident care associate to a significant other at home: No Do you presently have visiting nurse or other home services: No Patient Tobacco Use Status: Never used Tobacco e-Cigarette/Vaping Use: Never Used Second Hand Smoke Exposure: No service: No Current occupational status: employed Current occupation: [employer] Current occupational exposures/hazards: No Cognitive needs: No Hearing needs: No Vision needs: No Review of Systems Const All systems reviewed & are unremarkable except as noted in HPI and below Physical Exam Vital Signs: Last Vital Signs Temp 98.1 F 06/26/23 10:40 Pulse 68 06/26/23 10:40 BP 124/80 06/26/23 10:40 Pulse Ox 95 06/26/23 10:40 Oxygen Delivery Method Room Air 06/26/23 10:40 vss 95% after ambulation Appearance: Alert.? Oriented X3.? No acute distress.? Head: Normocephalic, atraumatic, no step-offs or deformities Eyes: Pupils equal, round and reactive to light.? CVS: Normal heart rate and rhythm.? Pulses normal.? Respiratory: No respiratory distress.? Breath sounds RLL faint crackles.? Abdomen: Soft and nontender.? Skin: Skin warm and dry.? Normal skin color.? Normal skin turgor.? Extremities: No lower extremity edema.? No calf ttp. 5/5 strength to bilateral upper and lower extremities Back: No midline tenderness, no C-spine tenderness, full range of motion, no CVA tenderness bilaterally Neuro: Oriented X 3.? No motor deficit.? No sensory deficit. CN 2-12 intact Assessment & Plan Assessment & Plan (1) Bronchitis: Code(s): J40 - Bronchitis, not specified as acute or chronic Plan Take your medications as prescribed. If you were prescribed antibiotics today, it is important that you take your medication to their entirety, do not skip any doses, do not finish them early. Follow-up with your primary care provider this week. Return to the emergency department with new or worsening symptoms. Such as fevers, chills, chest pain, shortness of breath, nausea, vomiting, dizziness, headache, vision changes, lethargy In case of emergency call 911 Medications: New doxycycline hyclate 100 mg PO BID 14 caps 0RF 7 days prednisone 40 mg (2 x 20 mg) PO DAILY 10 tabs 0RF 5 days albuterol sulfate 90 mcg/actuation 2 puffs inhalation Q6H PRN 6.7 grams 0RF shortness of breath or wheezing [id number] 5-10-100 mg/5 mL (Adult Robitussin Peak Cold M-S) 10 mL PO Q4H PRN 237 mL 0RF cold symptoms Coding Level of Care Code Est Pt Level 3 (06151) Diagnoses Bronchitis J40
[2023-06-26 10:40] VITALS: BP 124/80; PULSE 68; TEMP 36.7; O2SAT 95
== END 2023-06-26 15:27 | disposition home or self-care (01) ==
PROVIDERS: PCP Nurse Practitioner Family; Visit Provider Physician Assistant
DX: J40 Bronchitis, not specified as acute or chronic (principal)
CPT/HCPCS: 99213

== ENCOUNTER 2023-07-10 06:14 | Outpatient (REF) | payer BC, SELFPAY ==
[2023-07-10 08:11] LABS: Alanine Aminotransferase 33 U/L (0-40); Alkaline Phosphatase 76 U/L (39-117); Anion Gap 13 (12-20); Aspartate Amino Transferase 36 U/L (5-37); Bilirubin Total 0.5 mg/dL (0.0-1.0); Blood Urea Nitrogen 22 mg/dL (9-16); Calcium 9.5 mg/dL (8.4-10.2); Carbon Dioxide 27 mmol/L (22-29); Chloride 107 mmol/L (96-108); Cholesterol 159 mg/dL (<200); Estimated Glomerular Filt Rate > 60; Glucose Fasting 102 mg/dL (60-99); HDL Cholesterol 34 mg/dL (>40); LDL Cholesterol Calculated 87 mg/dL (<100); Potassium 4.7 mmol/L (3.3-5.1); Sodium 142 mmol/L (135-145); Triglycerides 191 mg/dL (<150)
== END 2023-07-10 06:15 | disposition home or self-care (01) ==
LOC: HO.LAB 06:14
PROVIDERS: PCP Nurse Practitioner Family; Visit Provider Nurse Practitioner Family
DX: E78.5 Hyperlipidemia, unspecified (principal); E78.1 Pure hyperglyceridemia
CPT/HCPCS: 36415; 80053; 80061

== ENCOUNTER 2023-07-12 08:27 | Outpatient (AMB) | payer BC, SELFPAY ==
[2023-07-12 08:29] VITALS: BP 122/74; PULSE 67; O2SAT 97; BMI 29.6
--- NOTE | 2023-07-12 08:29 | A.OFFPC_ITS ---
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 Required: No Accompanied by: Self / Same As Patient Allergies No Known Allergies [No Known Allergies*] Allergy (Verified 07/12/23 08:30) Medication List - Last Reconciled 07/12/23 by Benji Díaz [facility] albuterol sulfate 90 mcg/actuation 2 puffs inhalation Q6H PRN alprazolam 0.5 mg PO BID PRN finasteride 5 mg PO DAILY 90 days rosuvastatin (Crestor) 10 mg PO DAILY 90 days sertraline 100 mg PO DAILY tadalafil 5 mg PO DAILY 90 days Tobacco use date assessed: 07/12/23 Dental Screening Dental Screen Date: 07/12/23 Did you have a dental visit in the last 12 months?: Yes Did you have a dental problem in the last 6 months where you did not have access to dental care?: No Was dental information given to patient?: Patient has dentist HPI 6 month fu HPI Details Pt was seen in the walk-in on 06/26 c/o cough, congestion, fatigue, malaise, and myalgias. He previously tested positive for COVID on 06/05 but reported ongoing symptoms. Pt was given doxycycline, prednisone, albuterol, and robitussin. Today, he reports doing better. Denies fever, chills, and cough. elevated FBS: education on diet. High triglycerides: Will repeat labs, pt is working on diet. Pt reports hypogonadism. Will check testosterone. PFSH Medical History Hx of prostatitis COVID-19 vaccine series completed History of COVID-19 Elevated cholesterol GERD (gastroesophageal reflux disease) Anxiety and depression Alcohol abuse Surgical History Hx of shoulder surgery Family History Sister Substance abuse Social History Housing: Apartment Are you a primary personal care assistant to a significant other at home: No Do you presently have visiting nurse or other home services: No Patient Tobacco Use Status: Never used Tobacco e-Cigarette/Vaping Use: Never Used Second Hand Smoke Exposure: No service: No Current occupational status: employed Current occupation: [employer] Current occupational exposures/hazards: No Cognitive needs: No Hearing needs: No Vision needs: No Questionnaire PHQ-9 Over the last 2 weeks, how often have you been bothered by any of the following problems? 1. Little interest or pleasure in doing things: not at all 2. Feeling down, depressed, or hopeless: not at all 3. Trouble falling or staying asleep, or sleeping too much: not at all 4. Feeling tired or having little energy: not at all 5. Poor appetite or overeating: not at all 6. Feeling bad about yourself - or that you are a failure or have let yourself or your family down: not at all 7. Trouble concentrating on things, such as reading the newspaper or watching television: not at all 8. Moving or speaking so slowly that other people could have noticed. Or the opposite - being so fidgety or restless that you have been moving around a lot more than usual: not at all 9. Thoughts that you would be better off or of hurting yourself in some way: not at all Total score: 0 Depression Screening Interpretation: Negative Depression Screening Done: Yes 78922 - PHQ-9 Billing: Yes Source: Developed by Drs. Mike Cifuentes, Nanda Ji, Ramon Shepard and colleagues, with an educational jos ej from [employer]. Thrive Questionnaire Date Thrive assessed: 07/12/23 I am a: Patient What is your living situation today?: I have a steady place to live Within the past 12 months, did the food you bought not last and you didn't have the money to get more?: Never true Within the past 12 months, did you worry whether your food would run out before you got money to buy more?: Never true Do you have trouble paying for medicines?: No Do you have trouble getting transportation to medical appointments?: No Do you have trouble paying your heating and electricity bill?: No Do you have trouble taking care of your child, family member or friend?: No Do you have trouble with day-to-day activities such as bathing, preparing meals, shopping, managing finances, etc.?: No Are you currently unemployed and looking for a job?: No Are you interested in more education?: No Please select the resources that you would like help with: None Currently or been in a relationship where the following occur: no concerns reported THRIVE Score: 0 AUDIT C Alcohol Use Questionnaire (AUDIT-C) 1. How often do you have a drink containing alcohol?: Never 2. How many drinks containing alcohol do you have on a typical day when you are drinking?: 1 or 2 3. How often do you have six or more drinks on one occasion?: Never Total Score: 0 Score Reviewed/Action Taken: Yes FABBY-7 AMB Questionnaire FABBY-7 Date FABBY - 7 assessed: 07/12/23 Feeling nervous, anxious, or on edge: 0 = Not at all Not being able to stop or control worryin = Not at all Worrying too much about different things: 0 = Not at all Trouble relaxin = Not at all Being so restless that it is hard to sit still: 0 = Not at all Becoming easily annoyed or irritable: 0 = Not at all Feeling afraid as if something awful might happen: 0 = Not at all Total FABBY-7 score (0-4 normal; 5-9 mild; 10-14 moderate; 15-21 severe): 0 Source: Developed by Drs. Mike Cifuentes, Nanda Ji, Ramon Shepard and colleagues, with an educational jose j from [employer]. FABBY-7 Assessment Billing FABBY-7 Assessment Tool: FABBY-7 Assessment 50921 Review of Systems Const Reports as per HPI Physical exam (Primary Care) Vital Signs: Last Vital Signs Pulse 67 07/12/23 08:29 BP 122/74 07/12/23 08:29 Pulse Ox 97 07/12/23 08:29 Oxygen Delivery Method Room Air 07/12/23 08:29 BMI result Body Mass Index 29.6 Tobacco/Smoking Status: Tobacco use Status Tobacco use date assessed 07/12/23 07/12/23 08:35 Patient Tobacco Use Status Never used Tobacco 07/12/23 08:35 e-Cigarette/Vaping Use Never Used 07/12/23 08:35 PHQ-9: PHQ-9 Score PHQ-9: Total score 0 07/12/23 08:40 Depression Screening Interpretation: Negative Thrive Assessment: Date of Thrive Assessment Date Thrive assessed 07/12/23 07/12/23 08:35 Currently or been in a relationship where the following occur: no concerns reported Const General: cooperative Orientation/consciousness: patient oriented x3 Neck Neck: Yes no lymphadenopathy Resp Effort & Inspection: normal respiratory effort Auscultation: clear to auscultation bilaterally Cardio Rate: regular rate Rhythm: regular rhythm Heart sounds: S1 normal heart sound present and S2 normal heart sound present Neuro General: patient oriented x3 Psych Appearance: grossly normal Mental Status: mental status grossly normal Speech and movement: Normal speech and movement present Affect: normal affect Attitude: cooperative Thought process: Normal thought process present Thought content: Normal thought content present Insight: Good insight present (Psych) Judgement: Good judgement present (Psych) Assessment and Plan Assessment & Plan (1) High triglycerides: Code(s): E78.1 - Pure hyperglyceridemia Plan: Labs ordered (2) Dyslipidemia: Code(s): E78.5 - Hyperlipidemia, unspecified Plan: Labs ordered (3) Hypogonadism in male: Code(s): E29.1 - Testicular hypofunction Plan: Checking testosterone Plan The patient agreed to the use of a medical billing manager for this encounter. Scribed for JOSE Cabrera by Nara Ortega medical billing manager, on 07/12/2023 at 08:35 EST. Orders: Orders Lipid Panel 2 Months E78.1 - Pure hyperglyceridemia, E78.5 - Hyperlipidemia, unspecified Comprehensive Met. Panel 2 Months E78.1 - Pure hyperglyceridemia, E78.5 - Hyperlipidemia, unspecified Testosterone, Free/Total Today E29.1 - Testicular hypofunction Coding Level of Care Code Est Pt Level 3 (55395) Diagnoses High triglycerides E78.1 Dyslipidemia E78.5 Hypogonadism in male E29.1 Additional Codes FABBY-7 Assessment Billing - FABBY-7 Assessment Tool: FABBY-7 Assessment [id number] ([id number])
== END 2023-07-12 11:44 | disposition home or self-care (01) ==
PROVIDERS: PCP Nurse Practitioner Family; Visit Provider Nurse Practitioner Family
DX: E78.1 Pure hyperglyceridemia (principal)
CPT/HCPCS: 99213

== ENCOUNTER 2023-09-15 06:36 | Outpatient (REF) | payer BC, SELFPAY ==
[2023-09-15 08:49] LABS: Alanine Aminotransferase 28 U/L (0-40); Albumin Level 4.2 g/dL (3.5-5.0); Alkaline Phosphatase 86 U/L (39-117); Anion Gap 13 (12-20); Aspartate Amino Transferase 31 U/L (5-37); Bilirubin Total 0.3 mg/dL (0.0-1.0); Blood Urea Nitrogen 25 mg/dL (9-16); Carbon Dioxide 28 mmol/L (22-29); Chloride 106 mmol/L (96-108); Cholesterol 151 mg/dL (<200); Estimated Glomerular Filt Rate > 60; Glucose Random 99 mg/dL (60-115); HDL Cholesterol 32 mg/dL (>40); LDL Cholesterol Calculated 70 mg/dL (<100); Potassium 4.7 mmol/L (3.3-5.1); Sodium 142 mmol/L (135-145); Total Protein 7.2 g/dL (6.5-8.0); Triglycerides 249 mg/dL (<150)
[2023-09-15 08:56] LABS: Prostate Specific Antigen 1.64 ng/mL (<0.05-4.0)
[2023-09-24 09:54] LABS: Testosterone, Free 85.9 pg/mL (35.0-155.0); Testosterone, Total 394 ng/dL (250-1100)
== END 2023-09-15 06:37 | disposition home or self-care (01) ==
LOC: HO.LAB 06:36
PROVIDERS: PCP Nurse Practitioner Family; Visit Provider Urology
DX: C61 Malignant neoplasm of prostate (principal); E78.1 Pure hyperglyceridemia; E78.5 Hyperlipidemia, unspecified; E29.1 Testicular hypofunction; Z12.5 Encounter for screening for malignant neoplasm of prostate
CPT/HCPCS: 36415; 80053; 80061; 84153; 84402; 84403

== ENCOUNTER 2023-09-19 14:39 | Outpatient (AMB) | payer BC, SELFPAY ==
--- NOTE | 2023-09-19 14:46 | A.OFFVIS_ITS ---
Intake Visit Reasons: 6m/PSA(set) Intake Note: Patient is Present for a Follow Up PSA Results Urology Med: Finasteride, Tadalafil Antibiotic Allergy: None Blood Thinner: None Rubber Molder Required: No Accompanied by: Self / Same As Patient Allergies No Known Allergies [No Known Allergies*] Allergy (Verified 09/19/23 14:46) Medication List - Last Reconciled 09/19/23 by Sreedhar Valverde MD albuterol sulfate 90 mcg/actuation 2 puffs inhalation Q6H PRN alprazolam 0.5 mg PO BID PRN fenofibrate 54 mg PO DAILY finasteride 5 mg PO DAILY 90 days rosuvastatin (Crestor) 10 mg PO DAILY 90 days sertraline 100 mg PO DAILY tadalafil 5 mg PO DAILY 90 days HPI Comments Details: Israel is a pleasant male. He is a patient with Dr Simon. He is seen for the following urologic conditions - elevated testosterone - elevated PSA - urinary urgency Six month follow-up for low-dose tadalafil with twice weekly finasteride 02/16 Testosterone 1381, PSA 3.6 PSA 10/19 4.3, 05/22 6.6 T 376, 10/20 1.3, 02/19 1.3 T 500, 08/21 1.7, 12/21 1.8 T Pend, 03/23 1.3 450, 09/21 P 1.6 Prescriptions provided Six-month follow-up lab work Elevated PSA Discussion today regarding impact of testosterone stimulators on PSA Labs - 02/19 T 491 GIOVANY with boggy prostate Prostate Cancer - Low volume 05/12 cores, Low grade 3+3 - June [address] Valverde PSA at diagnosis 6.6, Volume 45g T1c 12/21 MRI - 35 g gland, 6 mm left peripheral apex lesion PI-RADS 4 - location consistent with prior biopsy June 2021 Histologic type: Adenocarcinoma, Acinar type Histologic grade [place] score: 3+3=6 DAVID 5% Grade group: 1 Tumor quantitation: Number cores positive: 1? Total number of cores: 12 Periprostatic fat inv.: Not identified, Seminal vesicle inv.: Not identified, Perineural inv.: Not identified, LVI: Not identified PFSH Medical History Hx of prostatitis COVID-19 vaccine series completed History of COVID-19 Elevated cholesterol GERD (gastroesophageal reflux disease) Anxiety and depression Alcohol abuse Surgical History Hx of shoulder surgery Family History Sister Substance abuse Social History Housing: Apartment Are you a primary respite care provider to a significant other at home: No Do you presently have visiting nurse or other home services: No Patient Tobacco Use Status: Never used Tobacco e-Cigarette/Vaping Use: Never Used Second Hand Smoke Exposure: No service: No Current occupational status: employed Current occupation: [employer] Current occupational exposures/hazards: No Cognitive needs: No Hearing needs: No Vision needs: No Review of Systems Const Denies chills and Denies fever(s) Card Reports no additional complaints and Denies syncope Resp Denies cough GI Denies abdominal pain and Denies heartburn Reports as per HPI and Denies change in libido Neuro Denies syncope Psych Denies change in libido Endo Denies change in libido Physical Exam Const General: cooperative, healthy appearing, comfortable and no acute distress Orientation/consciousness: patient oriented x3 HEENT Face and sinus: Yes normal facial exam Mouth: moist mucous membranes Neck Neck: Yes normal visual inspection, Yes full ROM and Yes trachea midline Chest Chest palpation & inspection: normal inspection of the chest Resp Effort & Inspection: normal respiratory effort, able to speak in complete sentences and no respiratory distress GI Inspection: Yes normal to inspection Back/Spine/Pelvis Cervical Spine: normal cervical lordosis Thoracic/Lumbar Spine: thoracic and lumbar spine normal to inspection Skin General skin exam: no rashes or lesions noted Neuro General: patient oriented x3, gait normal, tone normal and moves all extremities Extrem General: Yes normal to inspection and Yes capillary refill normal Assessment & Plan Assessment & Plan (1) Urinary urgency: Code(s): R39.15 - Urgency of urination Category: Medical (2) Prostate cancer: Comment: 06/22 low-grade low volume Code(s): C61 - Malignant neoplasm of prostate Category: Medical Plan Six-month follow-up lab work Orders: Orders Prostate Specific Antigen 6 Months C61 - Malignant neoplasm of prostate Testosterone, Total 6 Months C61 - Malignant neoplasm of prostate Medications: Refilled tadalafil 5 mg PO DAILY 90 days 90 tabs 1RF urge R39.15 - Urgency of urination Patient Instructions: Imaging studies, laboratory and physical exam results were discussed and reviewed in detail. No major barriers to patient understanding were identified. An opportunity to ask questions regarding the treatment plan was provided. All questions were answered. The patient expressed understanding and agreement with the above treatment plan. The patient is aware they should contact our office by phone for worsening of their current condition or the appearance of new urologic symptoms. Compliance is encouraged with any medications and followup testing that is ordered. It is a privilege to participate in the urologic care of your patient. If you have any questions or concerns regarding treatment for the above conditions, or other urologic issues, please do not hesitate to contact me. The office telephone contact is [phone]. This note is constructed using voice recognition software. While every effort has been made to ensure accuracy electrical sign wirer errors may have been included. Yours sincerely, Dr Sreedhar Valverde MD, [facility] - Urology Providers of Expert, Compassionate Care for the Genitourinary System Coding Level of Care Code Est Pt Level 3 (06694) Diagnoses Urinary urgency R39.15 Prostate cancer C61
== END 2023-09-19 15:36 | disposition home or self-care (01) ==
PROVIDERS: PCP Nurse Practitioner Family; Visit Provider Urology
DX: R39.15 Urgency of urination (principal); C61 Malignant neoplasm of prostate
CPT/HCPCS: 99213

== ENCOUNTER → 2023-09-19 14:39 | Outpatient (BNVA) | payer BC, SELFPAY | PROVIDERS: PCP Nurse Practitioner Family; Visit Provider Urology ==

== ENCOUNTER 2023-11-28 12:58 | Outpatient (AMB) | payer BC, SELFPAY ==
--- NOTE | 2023-11-28 13:05 | MHC.OFFVIS ---
Intake Visit Reasons: discuss Testo labs Intake Note: Patient is Present for Follow Up Testosterone Results Urology Medication: Tadalafil, Finasteride Antibiotic Allergies:None Blood Thinners:None Allergies No Known Allergies [No Known Allergies*] Allergy (Verified 09/19/23 14:46) HPI Comments Details: Israel is a pleasant male. He is a patient with Dr Simon. He is seen for the following urologic conditions - elevated testosterone - elevated PSA - urinary urgency Six month follow-up for low-dose tadalafil with twice weekly finasteride May moved to cycling finasteride Is still feeling some degree of fatigue. Has excessive daytime somnolence and occasional unintended micro sleep. He would like to try a sleep study Discussed sleep hygiene 02/16 Testosterone 1381, PSA 3.6 PSA 10/19 4.3, 05/22 6.6 T 376, 10/20 1.3, 02/19 1.3 T 500, 08/21 1.7, 12/21 1.8 T Pend, 03/23 1.3 450, 09/21 P 1.6 Prescriptions provided Six-month follow-up lab work Elevated PSA Discussion today regarding impact of testosterone stimulators on PSA Labs - 02/19 T 491 GIOVANY with boggy prostate Prostate Cancer - Low volume 05/12 cores, Low grade 3+3 - June [address] Valverde PSA at diagnosis 6.6, Volume 45g T1c 12/21 MRI - 35 g gland, 6 mm left peripheral apex lesion PI-RADS 4 - location consistent with prior biopsy June 2021 Histologic type: Adenocarcinoma, Acinar type Histologic grade [place] score: 3+3=6 DAVID 5% Grade group: 1 Tumor quantitation: Number cores positive: 1? Total number of cores: 12 Periprostatic fat inv.: Not identified, Seminal vesicle inv.: Not identified, Perineural inv.: Not identified, LVI: Not identified PFSH Medical History Hx of prostatitis COVID-19 vaccine series completed History of COVID-19 Elevated cholesterol GERD (gastroesophageal reflux disease) Anxiety and depression Alcohol abuse Surgical History Hx of shoulder surgery Family History Sister Substance abuse Social History (Reviewed 03/13/24 @ 08:30 by CONCEPCION Kessler Housing: Apartment Are you a primary personal care home administrator to a significant other at home: No Do you presently have visiting nurse or other home services: No Patient Tobacco Use Status: Never used Tobacco e-Cigarette/Vaping Use: Never Used Second Hand Smoke Exposure: No service: No Current occupational status: employed Current occupation: [employer] Current occupational exposures/hazards: No Cognitive needs: No Hearing needs: No Vision needs: No Review of Systems Const Denies chills and Denies fever(s) Card Reports no additional complaints and Denies syncope Resp Denies cough GI Denies abdominal pain and Denies heartburn Reports as per HPI and Denies change in libido Neuro Denies syncope Psych Denies change in libido Endo Denies change in libido Physical Exam Const General: cooperative, healthy appearing, comfortable and no acute distress Orientation/consciousness: patient oriented x3 HEENT Face and sinus: Yes normal facial exam Mouth: moist mucous membranes Neck Neck: Yes normal visual inspection, Yes full ROM and Yes trachea midline Chest Chest palpation & inspection: normal inspection of the chest Resp Effort & Inspection: normal respiratory effort, able to speak in complete sentences and no respiratory distress GI Inspection: Yes normal to inspection Back/Spine/Pelvis Cervical Spine: normal cervical lordosis Thoracic/Lumbar Spine: thoracic and lumbar spine normal to inspection Skin General skin exam: no rashes or lesions noted Neuro General: patient oriented x3, gait normal, tone normal and moves all extremities Extrem General: Yes normal to inspection and Yes capillary refill normal Assessment & Plan Assessment & Plan (1) Fatigue: Code(s): R53.83 - Other fatigue Category: Medical (2) Uncontrolled daytime somnolence: Code(s): R40.0 - Somnolence Category: Medical (3) Prostate cancer: Comment: 06/22 low-grade low volume Code(s): C61 - Malignant neoplasm of prostate Category: Medical Plan For phone PSA Orders: Orders RT home sleep study Today R40.0 - Somnolence Patient Instructions: Imaging studies, laboratory and physical exam results were discussed and reviewed in detail. No major barriers to patient understanding were identified. An opportunity to ask questions regarding the treatment plan was provided. All questions were answered. The patient expressed understanding and agreement with the above treatment plan. The patient is aware they should contact our office by phone for worsening of their current condition or the appearance of new urologic symptoms. Compliance is encouraged with any medications and followup testing that is ordered. It is a privilege to participate in the urologic care of your patient. If you have any questions or concerns regarding treatment for the above conditions, or other urologic issues, please do not hesitate to contact me. The office telephone contact is [phone]. This note is constructed using voice recognition software. While every effort has been made to ensure accuracy customer solutions teammate errors may have been included. Yours sincerely, Dr Sreedhar Valverde MD, [facility] - Urology Providers of Expert, Compassionate Care for the Genitourinary System Coding Level of Care Code Est Pt Level 4 (31720) Diagnoses Fatigue R53.83 Uncontrolled daytime somnolence R40.0 Prostate cancer C61
== END 2023-11-28 13:40 | disposition home or self-care (01) ==
PROVIDERS: PCP Nurse Practitioner Family; Visit Provider Urology
DX: R53.83 Other fatigue (principal); R40.0 Somnolence; C61 Malignant neoplasm of prostate
CPT/HCPCS: 99214

== ENCOUNTER → 2023-11-28 12:58 | Outpatient (BNVA) | payer BC, SELFPAY | PROVIDERS: PCP Nurse Practitioner Family; Visit Provider Urology ==

== ENCOUNTER 2024-01-22 06:17 | Outpatient (REF) | payer BC, SELFPAY ==
[2024-01-22 08:16] LABS: Alanine Aminotransferase 28 U/L (0-40); Albumin Level 4.1 g/dL (3.5-5.0); Alkaline Phosphatase 65 U/L (39-117); Anion Gap 12 (12-20); Aspartate Amino Transferase 33 U/L (5-37); Bilirubin Total 0.5 mg/dL (0.0-1.0); Blood Urea Nitrogen 28 mg/dL (9-16); Calcium 9.4 mg/dL (8.4-10.2); Carbon Dioxide 27 mmol/L (22-29); Chloride 107 mmol/L (96-108); Cholesterol 139 mg/dL (<200); Estimated Glomerular Filt Rate > 60; Glucose Fasting 106 mg/dL (60-99); HDL Cholesterol 33 mg/dL (>40); LDL Cholesterol Calculated 86 mg/dL (<100); Potassium 4.1 mmol/L (3.3-5.1); Sodium 142 mmol/L (135-145); Triglycerides 103 mg/dL (<150)
== END 2024-01-22 06:18 | disposition home or self-care (01) ==
LOC: HO.LAB 06:17
PROVIDERS: PCP Nurse Practitioner Family; Visit Provider Nurse Practitioner Family
DX: E78.1 Pure hyperglyceridemia (principal); E78.5 Hyperlipidemia, unspecified
CPT/HCPCS: 36415; 80053; 80061

== ENCOUNTER 2024-01-25 07:27 | Outpatient (AMB) | payer BC, SELFPAY ==
[2024-01-25 07:37] VITALS: BP 110/80; PULSE 71; O2SAT 98; BMI 28.9
--- NOTE | 2024-01-25 07:37 | MHC.PC.OV ---
Vital Signs 01/25/24 07:37 Height 6 ft Weight 213 lb BMI 28.9 BP 110/80 Blood Pressure Location Rt brachial Position Sitting Pulse 71 Pulse Source Pulse Oximeter Pulse Oximetry (%) 98 Oxygen Delivery Method Room Air Intake Visit Reasons: PE Intake Note: Pt is here today for his PE Allergies No Known Allergies [No Known Allergies*] Allergy (Verified 01/25/24 08:05) Medication List - Last Reconciled 01/25/24 by JOSE Henderson alprazolam 0.5 mg PO BID PRN fenofibrate 54 mg PO DAILY finasteride 5 mg PO DAILY 90 days rosuvastatin 10 mg PO DAILY 90 days sertraline 100 mg PO DAILY tadalafil 5 mg PO DAILY 90 days Tobacco use date assessed: 01/25/24 Dental Screening Dental Screen Date: 01/25/24 Did you have a dental visit in the last 12 months?: Yes Did you have a dental problem in the last 6 months where you did not have access to dental care?: No Was dental information given to patient?: Patient has dentist HPI PE HPI Details Pt is here for a PE. Will order labs. Colon screen is up to date. PSA is up to date, sees urology. PFSH Medical History Hx of prostatitis COVID-19 vaccine series completed History of COVID-19 Elevated cholesterol GERD (gastroesophageal reflux disease) Anxiety and depression Alcohol abuse Surgical History Hx of shoulder surgery Family History Sister Substance abuse Social History Housing: Apartment Are you a primary managed care specialist to a significant other at home: No Do you presently have visiting nurse or other home services: No Patient Tobacco Use Status: Never used Tobacco e-Cigarette/Vaping Use: Never Used Second Hand Smoke Exposure: No service: No Current occupational status: employed Current occupation: [employer] Current occupational exposures/hazards: No Cognitive needs: No Hearing needs: No Vision needs: No Questionnaire PHQ-9 Over the last 2 weeks, how often have you been bothered by any of the following problems? 1. Little interest or pleasure in doing things: not at all 2. Feeling down, depressed, or hopeless: not at all 3. Trouble falling or staying asleep, or sleeping too much: not at all 4. Feeling tired or having little energy: not at all 5. Poor appetite or overeating: not at all 6. Feeling bad about yourself - or that you are a failure or have let yourself or your family down: not at all 7. Trouble concentrating on things, such as reading the newspaper or watching television: not at all 8. Moving or speaking so slowly that other people could have noticed. Or the opposite - being so fidgety or restless that you have been moving around a lot more than usual: not at all 9. Thoughts that you would be better off or of hurting yourself in some way: not at all Total score: 0 Depression Screening Interpretation: Negative Depression Screening Done: Yes 40990 - PHQ-9 Billing: Yes Source: Developed by Drs. Mike Cifuentes, Nanda Ji, Ramon Shepard and colleagues, with an educational jose j from [employer]. Thrive Questionnaire Date Thrive assessed: 01/25/24 I am a: Patient What is your living situation today?: I have a steady place to live Within the past 12 months, did the food you bought not last and you didn't have the money to get more?: Never true Within the past 12 months, did you worry whether your food would run out before you got money to buy more?: Never true Do you have trouble paying for medicines?: No Do you have trouble getting transportation to medical appointments?: No Do you have trouble paying your heating and electricity bill?: No Do you have trouble taking care of your child, family member or friend?: No Do you have trouble with day-to-day activities such as bathing, preparing meals, shopping, managing finances, etc.?: No Are you interested in more education?: No Please select the resources that you would like help with: None Currently or been in a relationship where the following occur: No concerns reported THRIVE Score: 0 AUDIT C Alcohol Use Questionnaire (AUDIT-C) 1. How often do you have a drink containing alcohol?: Never 3. How often do you have six or more drinks on one occasion?: Never Total Score: 0 FABBY-7 AMB Questionnaire FABBY-7 Date FABBY - 7 assessed: 01/25/24 Feeling nervous, anxious, or on edge: 0 = Not at all Not being able to stop or control worryin = Not at all Worrying too much about different things: 0 = Not at all Trouble relaxin = Not at all Being so restless that it is hard to sit still: 0 = Not at all Becoming easily annoyed or irritable: 0 = Not at all Feeling afraid as if something awful might happen: 0 = Not at all Total FABBY-7 score (0-4 normal; 5-9 mild; 10-14 moderate; 15-21 severe): 0 Source: Developed by Drs. Mike Cifuentes, Nanda Ji, Ramon Shepard and colleagues, with an educational jose j from [employer]. FABBY-7 Assessment Billing FABBY-7 Assessment Tool: FABBY-7 Assessment 15205 Review of Systems Const Denies chills and Denies fever(s) Eyes Denies blurry vision ENT Denies vertigo, Denies dizziness and Denies sore throat Card Denies chest pain at rest, Denies chest pain with activity, Denies diaphoresis, Denies dyspnea and Denies dyspnea on exertion Resp Denies cough, Denies dyspnea, Denies dyspnea on exertion and Denies wheezing GI Denies abdominal pain, Denies melena, Denies hematochezia, Denies constipation, Denies diarrhea and Denies loose stools Denies hematuria Musc Denies numbness and Denies tingling Skin/Breast Denies lesions Neuro Denies vertigo, Denies dizziness, Denies numbness and Denies tingling Psych Denies anxiety, Denies depression, Denies homicidal ideation, Denies suicidal ideation and Denies other (substance abuse) Aller/Immun Denies wheezing Physical exam (Primary Care) Vital Signs: Last Vital Signs Pulse 71 01/25/24 07:37 BP 110/80 01/25/24 07:37 Pulse Ox 98 01/25/24 07:37 Oxygen Delivery Method Room Air 01/25/24 07:37 BMI result Body Mass Index 28.9 Tobacco/Smoking Status: Tobacco use Status Tobacco use date assessed 01/25/24 01/25/24 07:39 Patient Tobacco Use Status Never used Tobacco 01/25/24 07:39 e-Cigarette/Vaping Use Never Used 01/25/24 07:39 PHQ-9: PHQ-9 Score PHQ-9: Total score 0 01/25/24 08:05 Depression Screening Interpretation: Negative Thrive Assessment: Date of Thrive Assessment Date Thrive assessed 01/25/24 01/25/24 07:39 Currently or been in a relationship where the following occur: No concerns reported Const General: cooperative Nutritional Appearance: well nourished Orientation/consciousness: patient oriented x3 HENMT Head: Yes normal to inspection, Yes normocephalic and Yes atraumatic Ears: TM's normal bilaterally Eyes General: appearance normal, both eyes and all related structures Alignment and Position: alignment normal and position normal Neck Neck: Yes normal visual inspection, Yes no lymphadenopathy and Yes supple Resp Effort & Inspection: normal respiratory effort Auscultation: clear to auscultation bilaterally Cardio Rate: regular rate Rhythm: regular rhythm Heart sounds: S1 normal heart sound present, S2 normal heart sound present and no murmurs GI Palpation (GI): Soft to palpation and nontender Auscultation: normal bowel sounds Male General Exam: Yes normal external exam Penis: normal penis Scrotum: scrotum normal, testes descended bilaterally and no inguinal hernias Testes: no testicular mass Skin Rashes: no rashes Neuro General: patient oriented x3, moves all extremities, no focal motor deficits and deep tendon reflexes 2+ bilaterally Romberg Test: Negative Psych Appearance: grossly normal Mental Status: mental status grossly normal Speech and movement: Normal speech and movement present Affect: normal affect Attitude: cooperative Thought process: Normal thought process present Thought content: Normal thought content present Insight: Good insight present (Psych) Judgement: Good judgement present (Psych) Assessment and Plan Assessment & Plan (1) Physical exam: Code(s): Z00.00 - Encounter for general adult medical examination without abnormal findings Plan: Labs ordered Plan The patient agreed to the use of a manager medical writing for this encounter. Scribed for JOSE Cabrera by Nara Ortega manager medical writing, on 01/25/2024 at 08:00 EST. Orders: Orders Complete Blood Count Auto Diff Today Z00.00 - Encounter for general adult medical examination without abnormal findings Comprehensive [employer]. Panel Fast Today Z00.00 - Encounter for general adult medical examination without abnormal findings TSH reflex Free T4 Today Z00.00 - Encounter for general adult medical examination without abnormal findings UA CC w/rflx Micro + Cult Today Z00.00 - Encounter for general adult medical examination without abnormal findings Coding Level of Care Code Est Pt Prev Care 40-64y(65424) Diagnoses Physical exam Z00.00 Additional Codes FABBY-7 Assessment Billing - FABBY-7 Assessment Tool: FABBY-7 Assessment 39629 ([id number])
== END 2024-01-25 08:12 | disposition home or self-care (01) ==
PROVIDERS: PCP Nurse Practitioner Family; Visit Provider Nurse Practitioner Family
DX: Z00.00 Encounter for general adult medical examination without abnormal findings (principal)

== ENCOUNTER → 2024-01-25 07:27 | Outpatient (BNVA) | payer BC, SELFPAY | PROVIDERS: PCP Nurse Practitioner Family; Visit Provider Nurse Practitioner Family | DX: Z00.00 Encounter for general adult medical examination without abnormal findings (principal) | CPT/HCPCS: 96127 ==

== ENCOUNTER 2024-02-29 15:03 | Outpatient (REF) | payer BC, SELFPAY ==
--- NOTE | ~2024-02-29 | XR_ITS ---
EXAMINATION: XR CHEST CLINICAL INFORMATION: Cough, unspecified COMPARISON: June 2020. TECHNIQUE: 2 views of the chest were obtained. FINDINGS: No airspace consolidation or pneumothorax seen. The hilar regions and pulmonary vascularity are unremarkable. Slight blunting in the posterior sulcus on the lateral view may reflect minimal effusion or pleural reaction. Thoracic spines appear unremarkable. XR/XR chest 2V IMPRESSION: No evidence for focal infiltrate. Slight blunting in the posterior sulcus on the lateral view may reflect a minimal effusion or pleural reaction. Electronically signed by: Salvador Monique MD 02/29/2024 04:47 PM EDT
== END 2024-02-29 15:04 | disposition home or self-care (01) ==
LOC: HO.HMGCX 15:03
PROVIDERS: PCP Nurse Practitioner Family; Visit Provider Physician Assistant
DX: R05.9 Cough, unspecified (principal)
CPT/HCPCS: 71046

== ENCOUNTER 2024-02-29 15:03 | Outpatient (AMB) | payer BC, SELFPAY ==
--- OUTSIDE RECORDS SUMMARY | 2024-02-29 15:05 | XMS_ITS | Patient Health Record ---
Author Organization [facility] Address [address] [place] [address] Care Team Providers Care Simulation Educator Name Role Phone PACHECO GOMEZ Primary Care Provider Bertha Peck Unavailable [phone] ALLERGIES No Known Allergies REASON FOR REFERRAL No Information MEDICATIONS Medication SIG (Take, Route, Frequency, Duration) Notes Start Date End Date Status Sertraline HCl 100 MG as directed Orally as needed Active Xanax 0.5 MG 1 tablet Orally Twice a day Just prn Active IMMUNIZATIONS Vaccine Route Administration Date Status Comme nts Influenza Unknown 01/29/2021 Administered SOCIAL HISTORY Tobacco Use: Social History Observation Description Date Details (start date - stop date) Never Smoker NA - NA Sex Assigned At : Social History Observation Description Sex Assigned At Unknown Tobacco Use/Smoking Question Answer Notes Patient is a nonsmoker Alcohol Screen Question Answer Notes Did you have a drink containing alcohol in the p ast year? No Points 0 Interpretation Negative PROBLEMS Problem Type ICD Code Onset Dates Problem Status W/U Status Risk SNOMED Code Notes Problem Gastroesophageal reflux disease, unspecified whether esophagitis present (K21.9) Active confirmed 922467130 Problem Encounter for screening for malignant neoplasm of colon (Z12.11) Active confirmed 427398366 Problem Preprocedural examination (Z01.818) Active confirmed [id number] Problem Diverticulosis of colon (K57.30) Active confirmed Diverticulosi s of colon (688233804) PLAN OF TREATMENT Pending Test Test Name Order Date Pathology 06/07/2021 Future Test Test Name Order Date UPPER GI ENDOSCOPY 03/23/2021 COLONOSCOPY 03/23/2021 Insurance Providers Payer Name Payer Address Payer Phone Subscriber Number Group Number Insured Name Patient Relationship to Insured Coverage Start Date Coverage End Date [facility] [address] [place], [place] [id number] CLARIBEL ROBERTS Self - patient is the insured MEDICAL (GENERAL) HISTORY Medical History History ICD Code Denies NE,DM,CVA,Lung disease,renal dise ase Anxiety Depression GERD Surgical History Surgery Date(Month/Year) Shoulder-right 05/2020
--- NOTE | 2024-02-29 15:17 | MHC.OFFWIV ---
Intake Vital Signs 02/29/24 15:18 Height 6 ft Weight 213 lb BMI 28.9 BP 118/80 Blood Pressure Location Rt brachial Position Sitting Pulse 71 Pulse Source Pulse Oximeter Temp 98.2 F Temp Source Oral Pulse Oximetry (%) 98 Oxygen Delivery Method Room Air Intake Visit Reasons: EP-still with covid symptoms Intake Note: Patient here for covid symptoms after having covid about 3 weeks ago. Patient Tobacco Use Status: Never used Tobacco Allergies No Known Allergies [No Known Allergies*] Allergy (Verified 02/29/24 15:18) Do you need a note to return to daycare/school/sports/work: No HPI HPI Comments History of Present Illness Details Patient is a 53-year-old male complaining of continued upper respiratory symptoms after testing positive for COVID 3 weeks ago. He tells me he has fatigue, a dry cough, sinus pain, shortness of breath and just a general overall feeling of unwell for the last few weeks. He tells me he has a pain underneath his right ribs and the middle of his back on the right side. He states every time he gets COVID, he ends up with a secondary bacterial infection. This is his 3rd time having COVID, and he states his symptoms are lingering. He has not really taken anything specific for his symptoms. He denies a history of asthma or COPD and has used an inhaler in the past but does not have 1 at this time. He denies any fevers or ear pain or headaches PFSH Medical History Hiatal hernia Esophagitis Hx of prostatitis COVID-19 vaccine series completed History of COVID-19 Elevated cholesterol GERD (gastroesophageal reflux disease) Anxiety and depression Alcohol abuse Surgical History Hx of shoulder surgery Family History Sister Substance abuse Social History Housing: Apartment Are you a primary healthcare or medical to a significant other at home: No Do you presently have visiting nurse or other home services: No Patient Tobacco Use Status: Never used Tobacco e-Cigarette/Vaping Use: Never Used Second Hand Smoke Exposure: No service: No Current occupational status: employed Current occupation: [employer] Current occupational exposures/hazards: No Cognitive needs: No Hearing needs: No Vision needs: No Physical Exam Vital Signs: Last Vital Signs Temp 98.2 F 02/29/24 15:18 Pulse 71 02/29/24 15:18 BP 118/80 02/29/24 15:18 Pulse Ox 98 02/29/24 15:18 Oxygen Delivery Method Room Air 02/29/24 15:18 BMI result Body Mass Index 28.9 Const General: cooperative, healthy appearing, comfortable and no acute distress Orientation/consciousness: patient oriented x3 Limitations: no limitations HEENT Head: Yes normal to inspection Ears: hearing grossly normal bilaterally, external ears normal and TM's normal bilaterally General nose exam: Normal external nose present, Normal nares present and No nasal discharge present Face and sinus: Yes normal facial exam and Yes sinuses nontender Mouth: Normal oral and palatal mucosa present and moist mucous membranes Throat: Yes tonsils normal, Yes uvula midline and Yes posterior oropharynx abnormal (Erythema) Eyes General: appearance normal, both eyes and all related structures Neck Neck: Yes normal visual inspection Resp Effort & Inspection: normal respiratory effort, able to speak in complete sentences, no respiratory distress, not tachypneic, no tripod positioning and no use of accessory muscles Auscultation: clear to auscultation bilaterally Cardio Rate: regular rate Rhythm: regular rhythm Heart sounds: normal S1 and S2 Skin General skin exam: no rashes or lesions noted Neuro General: patient oriented x3 Extrem General: Yes normal to inspection and Yes no clubbing, cyanosis or edema Assessment & Plan Assessment & Plan (1) Lower respiratory infection (e.g., bronchitis, pneumonia, pneumonitis, pulmonitis): Code(s): J22 - Unspecified acute lower respiratory infection Plan: Vital signs are stable, patient well-appearing and lung sounds are clear. However with it being 3 weeks of symptoms and pain on his right ribs and right mid back, I will get a chest x-ray to rule out a lobar PNA. Sent inhaler and Tessalon Perles to patient's pharmacy and explained how to use the inhaler. Likely send a Z-Huber for walking pneumonia if no lobar pneumonia, pending chest x-ray results. Plan See above Orders: Orders XR chest 2V Today R05.9 - Cough, unspecified Medications: New albuterol sulfate 90 mcg/actuation 2 puffs inhalation Q6H PRN 8.5 grams 0RF shortness of breath or wheezing or cough benzonatate 200 mg PO TID PRN 14 caps 0RF cough Coding Level of Care Code Est Pt Level 4 (41311) Diagnoses Lower respiratory infection (e.g., bronchitis, pneumonia, pneumonitis, pulmonitis) J22
[2024-02-29 15:18] VITALS: BP 118/80; PULSE 71; TEMP 36.8; O2SAT 98; BMI 28.9
== END 2024-02-29 16:09 | disposition home or self-care (01) ==
PROVIDERS: PCP Nurse Practitioner Family; Visit Provider Physician Assistant
DX: J22 Unspecified acute lower respiratory infection (principal)

== ENCOUNTER 2024-03-18 06:27 | Outpatient (REF) | payer BC, SELFPAY ==
[2024-03-18 06:38] LABS: MANUAL DIFF FLAG NO
[2024-03-18 07:43] LABS: Basophils Absolute Auto 0.1 X10*3/uL (0.0-0.2); Basophils Percent Auto 0.9 % (0-2); Eosinophils Absolute Auto 0.4 X10*3/uL (0.0-0.4); Eosinophils Percent Auto 4.8 % (0-4); Hematocrit 40.8 % (42.0-52.0); Hemoglobin 13.9 g/dl (14.0-18.0); Imm Gran Abs Auto 0.02 X10*3/uL (0.00-0.03); Imm Gran Pct Auto 0.3 % (0.0-0.4); Lymphocytes Absolute Auto 3.7 X10*3/uL (1.2-4.9); Lymphocytes Percent Auto 47.6 % (20-40); Mean Corpuscular HGB Conc 34.1 g/dl (31.0-36.0); Mean Corpuscular Hemoglobin 30.4 pg (27.0-33.0); Mean Corpuscular Volume 89.3 fL (80.0-98.0); Monocytes Absolute Auto 0.7 X10*3/uL (0.1-1.2); Monocytes Percent Auto 9.6 % (2-11); Neutrophils Absolute Auto 2.8 x10*3/uL (2.0-8.3); Neutrophils Percent Auto 36.8 % (45-73); Platelet Count 274 X10*3/uL (160-400); Red Blood Count 4.57 X10*6/uL (4.60-5.80); Red Cell Distribution Width 12.7 % (11.0-16.0); White Blood Count 7.7 X10*3/uL (4.8-10.8)
[2024-03-18 08:17] LABS: Alanine Aminotransferase 34 U/L (0-40); Albumin Level 4.4 g/dL (3.5-5.0); Alkaline Phosphatase 74 U/L (39-117); Anion Gap 11 (12-20); Aspartate Amino Transferase 45 U/L (5-37); Bilirubin Total 0.4 mg/dL (0.0-1.0); Blood Urea Nitrogen 25 mg/dL (9-16); Calcium 10.2 mg/dL (8.4-10.2); Carbon Dioxide 28 mmol/L (22-29); Chloride 106 mmol/L (96-108); Estimated Glomerular Filt Rate > 60; Glucose Fasting 108 mg/dL (60-99); Potassium 4.7 mmol/L (3.3-5.1); Sodium 140 mmol/L (135-145); Total Protein 7.4 g/dL (6.5-8.0)
[2024-03-18 08:26] LABS: Prostate Specific Antigen 7.06 ng/mL (<0.05-4.0)
[2024-03-18 08:34] LABS: TSH reflex Free T4 1.72 uIU/mL (0.32-4.0)
[2024-03-24 00:39] LABS: Testosterone, Total 479 ng/dL (250-1100)
== END 2024-03-18 06:28 | disposition home or self-care (01) ==
LOC: HO.LAB 06:27
PROVIDERS: PCP Nurse Practitioner Family; Visit Provider Urology
DX: Z00.00 Encounter for general adult medical examination without abnormal findings (principal); C61 Malignant neoplasm of prostate; R74.8 Abnormal levels of other serum enzymes; Z12.5 Encounter for screening for malignant neoplasm of prostate
CPT/HCPCS: 36415; 80053; 84153; 84403; 84443; 85025

== ENCOUNTER 2024-03-22 15:14 | Outpatient (AMB) | payer BC, SELFPAY ==
--- NOTE | 2024-03-22 15:37 | A.OFFVIS_ITS ---
Intake Visit Reasons: 6m/PSA/Testo(set) Intake Note: Patient is Present for Follow Up PSA/Testosterone Urology Medication: Finasteride, Tadalafil Antibiotic Allergies: None Blood Thinners: None 03/18/24 PSA: 7.06 Testosterone- Pending Foundry Hand Required: No Accompanied by: Self / Same As Patient Allergies No Known Allergies [No Known Allergies*] Allergy (Verified 02/29/24 15:18) HPI Comments Details: Israel is a pleasant male. He is a patient with Dr Simon. He is seen for the following urologic conditions - elevated testosterone - prostate cancer - urinary urgency elevated PSA on repeat testing had been off finasteride will reestablish 3 times per week on GIOVANY has inflamed prostate consistent with prostatitis will give 2 weeks antibiotics and repeat labs within 2-months August 2023 moved to cycling finasteride 02/16 Testosterone 1381, PSA 3.6 PSA 10/19 4.3, 05/22 6.6 T 376, 10/20 1.3, 02/19 1.3 T 500, 08/21 1.7, 12/21 1.8 T Pend, 03/23 1.3 450, 09/21 P 1.6, 03/24 7 Elevated PSA Discussion today regarding impact of testosterone stimulators on PSA Labs - 02/19 T 491 GIOVANY with boggy prostate Prostate Cancer - Low volume /12 cores, Low grade 3+3 - June [address] Valverde PSA at diagnosis 6.6, Volume 45g T1c 12/21 MRI - 35 g gland, 6 mm left peripheral apex lesion PI-RADS 4 - location consistent with prior biopsy June 2021 Histologic type: Adenocarcinoma, Acinar type Histologic grade Vienna score: 3+3=6 DAVID 5% Grade group: 1 Tumor quantitation: Number cores positive: 1? Total number of cores: 12 Periprostatic fat inv.: Not identified, Seminal vesicle inv.: Not identified, Perineural inv.: Not identified, LVI: Not identified PFSH Medical History Hiatal hernia Esophagitis Hx of prostatitis COVID-19 vaccine series completed History of COVID-19 Elevated cholesterol GERD (gastroesophageal reflux disease) Anxiety and depression Alcohol abuse Surgical History Hx of shoulder surgery Family History Sister Substance abuse Social History Housing: Apartment Are you a primary director of health care marketing to a significant other at home: No Do you presently have visiting nurse or other home services: No Patient Tobacco Use Status: Never used Tobacco e-Cigarette/Vaping Use: Never Used Second Hand Smoke Exposure: No service: No Current occupational status: employed Current occupation: [employer] Current occupational exposures/hazards: No Cognitive needs: No Hearing needs: No Vision needs: No Review of Systems Const Denies chills and Denies fever(s) Card Reports no additional complaints and Denies syncope Resp Denies cough GI Denies abdominal pain and Denies heartburn Reports as per HPI and Denies change in libido Neuro Denies syncope Psych Denies change in libido Endo Denies change in libido Physical Exam Const General: cooperative, healthy appearing, comfortable and no acute distress Orientation/consciousness: patient oriented x3 HEENT Face and sinus: Yes normal facial exam Mouth: moist mucous membranes Neck Neck: Yes normal visual inspection, Yes full ROM and Yes trachea midline Chest Chest palpation & inspection: normal inspection of the chest Resp Effort & Inspection: normal respiratory effort, able to speak in complete sentences and no respiratory distress GI Inspection: Yes normal to inspection Rectal Exam - Male: Yes normal sphincter tone and Yes prostate normal Male General Exam: Yes normal external exam Penis: normal penis and circumcised Meatus: meatus normal Scrotum: scrotum normal Testes: Testes normal Back/Spine/Pelvis Cervical Spine: normal cervical lordosis Thoracic/Lumbar Spine: thoracic and lumbar spine normal to inspection Skin General skin exam: no rashes or lesions noted Neuro General: patient oriented x3, gait normal, tone normal and moves all extremities Extrem General: Yes normal to inspection and Yes capillary refill normal Assessment & Plan Assessment & Plan (1) Prostatitis: Code(s): N41.9 - Inflammatory disease of prostate, unspecified Category: Medical Plan 2 weeks Bactrim follow-up labs Medications: New sulfamethoxazole-trimethoprim 800-160 mg (Bactrim DS) 1 tab PO BID 28 tabs 0RF 14 days N39.0 - Urinary tract infection, site not specified, N41.9 - Inflammatory disease of prostate, unspecified Patient Instructions: Imaging studies, laboratory and physical exam results were discussed and reviewed in detail. No major barriers to patient understanding were identified. An opportunity to ask questions regarding the treatment plan was provided. All questions were answered. The patient expressed understanding and agreement with the above treatment plan. The patient is aware they should contact our office by phone for worsening of their current condition or the appearance of new urologic symptoms. Compliance is encouraged with any medications and followup testing that is ordered. It is a privilege to participate in the urologic care of your patient. If you have any questions or concerns regarding treatment for the above conditions, or other urologic issues, please do not hesitate to contact me. The office telephone contact is [phone]. This note is constructed using voice recognition software. While every effort has been made to ensure accuracy verifying machine operator errors may have been included. Yours sincerely, Dr Sreedhar Vlaverde MD, [facility] - Urology Providers of Expert, Compassionate Care for the Genitourinary System Coding Level of Care Code Est Pt Level 4 (05114) Diagnoses Prostatitis N41.9
== END 2024-03-22 15:58 | disposition home or self-care (01) ==
PROVIDERS: PCP Nurse Practitioner Family; Visit Provider Urology
DX: N41.9 Inflammatory disease of prostate, unspecified (principal)
CPT/HCPCS: 99214

== ENCOUNTER 2024-04-03 07:45 | Outpatient (REF) | payer BC, SELFPAY | END 2024-04-03 07:46 | disposition home or self-care (01) | LOC: HO.US 07:45 | PROVIDERS: PCP Nurse Practitioner Family; Visit Provider Nurse Practitioner Family | DX: R74.8 Abnormal levels of other serum enzymes (principal) | CPT/HCPCS: 76700 ==

== ENCOUNTER 2024-05-17 06:29 | Outpatient (REF) | payer BC, SELFPAY ==
[2024-05-17 08:16] LABS: HBS Num1 2.28 mIU/mL (0-7.99); HBc Num1 0.05 S/CO (0.00-0.79); HBsAGNum1 0.38 S/CO (0.00-0.99); Hepatitis A Antibody IgM 0.11 Index (0-0.79); Hepatitis B Core Antibody Nonreactive (Nonreactive); Hepatitis B Surface Antigen Negative (Negative); ~HepC Num1 0.07 S/CO (0.00-0.79); ~Hepatitis A Antibody IgM Nonreactive (Nonreactive); ~Hepatitis B Surface Antibody NONREACTIVE (Nonreactive); ~Hepatitis C Antibody Nonreactive (Nonreactive)
[2024-05-17 09:05] LABS: Appearance Urine Clear; Color Urine Yellow; Glucose Urine UA Negative (Negative); Leukocyte Esterase Urine Negative (Negative); Nitrite Urine Negative (Negative); PH 6.5 (5.0-9.0); Specific Gravity - Urine 1.015 (1.005-1.025); Urine Blood Negative (Negative); Urine Ketones Negative (Negative); Urine Protein Negative (Neg-Trace)
== END 2024-05-17 06:30 | disposition home or self-care (01) ==
LOC: HO.LAB 06:29
PROVIDERS: Absent Provider Urology; PCP Nurse Practitioner Family; Visit Provider Nurse Practitioner Family
DX: Z00.00 Encounter for general adult medical examination without abnormal findings (principal); R74.8 Abnormal levels of other serum enzymes
CPT/HCPCS: 36415; 81003; 86704; 86706; 86709; 86803; 87340

== ENCOUNTER 2024-05-21 06:23 | Outpatient (REF) | payer BC, SELFPAY ==
[2024-05-21 06:34] LABS: MANUAL DIFF FLAG NO
[2024-05-21 07:26] LABS: Basophils Absolute Auto 0.1 X10*3/uL (0.0-0.2); Basophils Percent Auto 1.1 % (0-2); Eosinophils Absolute Auto 0.5 X10*3/uL (0.0-0.4); Eosinophils Percent Auto 6.2 % (0-4); Hematocrit 41.6 % (42.0-52.0); Hemoglobin 13.8 g/dl (14.0-18.0); Imm Gran Abs Auto 0.01 X10*3/uL (0.00-0.03); Imm Gran Pct Auto 0.1 % (0.0-0.4); Lymphocytes Absolute Auto 4.1 X10*3/uL (1.2-4.9); Lymphocytes Percent Auto 50.5 % (20-40); Mean Corpuscular HGB Conc 33.2 g/dl (31.0-36.0); Mean Corpuscular Hemoglobin 29.9 pg (27.0-33.0); Mean Platelet Volume 10.7 fL (9.4-12.4); Monocytes Absolute Auto 0.9 X10*3/uL (0.1-1.2); Monocytes Percent Auto 10.5 % (2-11); Neutrophils Absolute Auto 2.6 x10*3/uL (2.0-8.3); Neutrophils Percent Auto 31.6 % (45-73); Platelet Count 286 X10*3/uL (160-400); Red Blood Count 4.62 X10*6/uL (4.60-5.80); Red Cell Distribution Width 12.8 % (11.0-16.0); White Blood Count 8.1 X10*3/uL (4.8-10.8)
[2024-05-21 07:55] LABS: Albumin Level 4.3 g/dL (3.5-5.0); Alkaline Phosphatase 72 U/L (39-117); Anion Gap 9 (12-20); Aspartate Amino Transferase 42 U/L (5-37); Bilirubin Total 0.4 mg/dL (0.0-1.0); Blood Urea Nitrogen 27 mg/dL (9-16); Calcium 8.9 mg/dL (8.4-10.2); Carbon Dioxide 27 mmol/L (22-29); Chloride 108 mmol/L (96-108); Cholesterol 148 mg/dL (<200); Estimated Glomerular Filt Rate > 60; Glucose Fasting 101 mg/dL (60-99); HDL Cholesterol 39 mg/dL (>40); LDL Cholesterol Calculated 86 mg/dL (<100); Potassium 4.2 mmol/L (3.3-5.1); Sodium 140 mmol/L (135-145); Total Protein 7.5 g/dL (6.5-8.0); Triglycerides 117 mg/dL (<150)
[2024-05-21 08:26] LABS: Alanine Aminotransferase 36 U/L (0-40)
== END 2024-05-21 06:24 | disposition home or self-care (01) ==
LOC: HO.LAB 06:23
PROVIDERS: PCP Nurse Practitioner Family; Visit Provider Urology
DX: K76.0 Fatty (change of) liver, not elsewhere classified (principal); E78.5 Hyperlipidemia, unspecified
CPT/HCPCS: 36415; 80053; 80061; 85025

== ENCOUNTER 2024-05-24 08:02 | Outpatient (REF) | payer BC, SELFPAY ==
[2024-05-24 12:00] LABS: Influenza A PCR POSITIVE (Negative); Influenza B PCR NEGATIVE (Negative); Resp Syncy Virus RNA Qual PCR NEGATIVE (Negative); SARS COV2 PCR INHOUSE NEGATIVE (Negative)
== END 2024-05-24 08:03 | disposition home or self-care (01) ==
LOC: HO.LAB 08:02
PROVIDERS: PCP Nurse Practitioner Family; Visit Provider Physician Assistant
DX: R06.9 Unspecified abnormalities of breathing (principal); Z11.52 Encounter for screening for COVID-19; Z13.83 Encounter for screening for respiratory disorder NEC
CPT/HCPCS: 0241U

== ENCOUNTER 2024-07-22 06:21 | Outpatient (REF) | payer BC, SELFPAY ==
[2024-07-22 06:54] LABS: MANUAL DIFF FLAG NO
[2024-07-22 07:30] LABS: Basophils Absolute Auto 0.1 X10*3/uL (0.0-0.2); Basophils Percent Auto 1.2 % (0-2); Eosinophils Absolute Auto 0.7 X10*3/uL (0.0-0.4); Eosinophils Percent Auto 9.4 % (0-4); Hematocrit 41.1 % (42.0-52.0); Hemoglobin 13.7 g/dl (14.0-18.0); Imm Gran Abs Auto 0.02 X10*3/uL (0.00-0.03); Imm Gran Pct Auto 0.3 % (0.0-0.4); Immature Retic Fraction 12.1 % (2.3-13.4); Lymphocytes Absolute Auto 3.5 X10*3/uL (1.2-4.9); Lymphocytes Percent Auto 46.7 % (20-40); Mean Corpuscular HGB Conc 33.3 g/dl (31.0-36.0); Mean Corpuscular Hemoglobin 30.1 pg (27.0-33.0); Mean Corpuscular Volume 90.3 fL (80.0-98.0); Mean Platelet Volume 10.8 fL (9.4-12.4); Monocytes Absolute Auto 0.8 X10*3/uL (0.1-1.2); Monocytes Percent Auto 10.2 % (2-11); Neutrophils Absolute Auto 2.4 x10*3/uL (2.0-8.3); Neutrophils Percent Auto 32.2 % (45-73); Platelet Count 251 X10*3/uL (160-400); Red Blood Count 4.55 X10*6/uL (4.60-5.80); Retic HGB Equivalent 33.8 pg (30.0-35.0); Reticulocyte Percent 1.5 % (0.5-1.8); Reticulocytes Absolute 0.069 X10*6/uL (0.026-0.095); White Blood Count 7.5 X10*3/uL (4.8-10.8)
[2024-07-22 07:55] LABS: Iron 72 mcg/dL (45-160); Lactate Dehydrogenase 145 U/L (118-273); Percent Iron Saturation 24 % (15-50); Total Iron Binding Capacity 302 mcg/dL (228-428); Unsaturated Iron Binding 230 ug/dL
[2024-07-22 08:09] LABS: Prostate Specific Antigen 2.56 ng/mL (<0.05-4.0)
[2024-07-22 08:11] LABS: Ferritin 165 ng/mL (20-250)
[2024-07-22 08:24] LABS: Folate 13.1 ng/mL (> or = 4.0); Vitamin B12 830 pg/mL (200-900)
[2024-07-28 12:33] LABS: Testosterone, Free 69.2 pg/mL (35.0-155.0); Testosterone, Total 456 ng/dL (250-1100)
== END 2024-07-22 06:22 | disposition home or self-care (01) ==
LOC: HO.LAB 06:21
PROVIDERS: Urology; PCP Nurse Practitioner Family; Visit Provider Nurse Practitioner Family
DX: D64.9 Anemia, unspecified (principal); E29.1 Testicular hypofunction; R97.20 Elevated prostate specific antigen [PSA]; R39.15 Urgency of urination; N41.9 Inflammatory disease of prostate, unspecified; Z12.5 Encounter for screening for malignant neoplasm of prostate
CPT/HCPCS: 36415; 82607; 82728; 82746; 83540; 83615; 84153; 84402; 84403; 85025; 85045

== ENCOUNTER 2024-08-29 08:37 | Outpatient (REF) | payer BC, SELFPAY ==
[2024-08-29 09:04] LABS: MANUAL DIFF FLAG NO
[2024-08-29 09:32] LABS: Basophils Absolute Auto 0.1 X10*3/uL (0.0-0.2); Eosinophils Absolute Auto 0.5 X10*3/uL (0.0-0.4); Eosinophils Percent Auto 6.5 % (0-4); Hematocrit 40.7 % (42.0-52.0); Hemoglobin 13.3 g/dl (14.0-18.0); Imm Gran Abs Auto 0.02 X10*3/uL (0.00-0.03); Imm Gran Pct Auto 0.3 % (0.0-0.4); Lymphocytes Absolute Auto 3.1 X10*3/uL (1.2-4.9); Mean Corpuscular HGB Conc 32.7 g/dl (31.0-36.0); Mean Corpuscular Hemoglobin 29.4 pg (27.0-33.0); Mean Corpuscular Volume 89.8 fL (80.0-98.0); Mean Platelet Volume 10.5 fL (9.4-12.4); Monocytes Absolute Auto 0.7 X10*3/uL (0.1-1.2); Monocytes Percent Auto 10.2 % (2-11); Neutrophils Absolute Auto 2.9 x10*3/uL (2.0-8.3); Platelet Count 247 X10*3/uL (160-400); Red Blood Count 4.53 X10*6/uL (4.60-5.80); Red Cell Distribution Width 12.6 % (11.0-16.0); White Blood Count 7.3 X10*3/uL (4.8-10.8)
== END 2024-08-29 08:38 | disposition home or self-care (01) ==
LOC: HO.LAB 08:37
PROVIDERS: PCP Nurse Practitioner Family; Visit Provider Nurse Practitioner Family
DX: D64.9 Anemia, unspecified (principal)
CPT/HCPCS: 36415; 85025

== ENCOUNTER 2024-09-17 11:25 | Outpatient (AMB) | payer BC, SELFPAY ==
--- NOTE | 2024-09-17 11:33 | MHC.OFFVIS ---
Intake Visit Reasons: Followup/PSA/Testo Intake Note: Pt presents to the office today for a follow up/PSA/Testo. Allergies No Known Allergies [No Known Allergies*] Allergy (Verified 09/17/24 11:33) HPI Comments Details: Israel is a pleasant male. He is a patient with Dr Simon. He is seen for the following urologic conditions - elevated testosterone - prostate cancer - urinary urgency Finasteride through times a week with consistent response. PSA has dropped down from 7 to 2.6. Testosterone in normal range. Six-month follow-up lab work with prostate MRI 02/16 Testosterone 1381, PSA 3.6 PSA 10/19 4.3, 05/22 6.6 T 376, 10/20 1.3, 02/19 1.3 T 500, 08/21 1.7, 12/21 1.8 T Pend, 03/23 1.3 450, 09/21 P 1.6, 03/24 7, 07/23 2.6 456 Elevated PSA Discussion today regarding impact of testosterone stimulators on PSA Labs - 02/19 T 491 GIOVANY with boggy prostate Prostate Cancer - Low volume 1/12 cores, Low grade 3+3 - June [address] Valverde PSA at diagnosis 6.6, Volume 45g T1c 12/21 MRI - 35 g gland, 6 mm left peripheral apex lesion PI-RADS 4 - location consistent with prior biopsy June 2021 Histologic type: Adenocarcinoma, Acinar type Histologic grade Luis score: 3+3=6 DAVID 5% Grade group: 1 Tumor quantitation: Number cores positive: 1? Total number of cores: 12 Periprostatic fat inv.: Not identified, Seminal vesicle inv.: Not identified, Perineural inv.: Not identified, LVI: Not identified PFSH Medical History Fatty liver Hiatal hernia Esophagitis Hx of prostatitis COVID-19 vaccine series completed History of COVID-19 Elevated cholesterol GERD (gastroesophageal reflux disease) Anxiety and depression Alcohol abuse Surgical History Hx of shoulder surgery Family History Sister Substance abuse Social History Housing: Apartment Are you a primary care worker to a significant other at home: No Do you presently have visiting nurse or other home services: No Patient Tobacco Use Status: Never used Tobacco e-Cigarette/Vaping Use: Never Used Second Hand Smoke Exposure: No service: No Current occupational status: employed Current occupation: [employer] Current occupational exposures/hazards: No Cognitive needs: No Hearing needs: No Vision needs: No Review of Systems Const Denies chills and Denies fever(s) Card Reports no additional complaints and Denies syncope Resp Denies cough GI Denies abdominal pain and Denies heartburn Reports as per HPI and Denies change in libido Neuro Denies syncope Psych Denies change in libido Endo Denies change in libido Physical Exam Const General: cooperative, healthy appearing, comfortable and no acute distress Orientation/consciousness: patient oriented x3 HEENT Face and sinus: Yes normal facial exam Mouth: moist mucous membranes Neck Neck: Yes normal visual inspection, Yes full ROM and Yes trachea midline Chest Chest palpation & inspection: normal inspection of the chest Resp Effort & Inspection: normal respiratory effort, able to speak in complete sentences and no respiratory distress GI Inspection: Yes normal to inspection Back/Spine/Pelvis Cervical Spine: normal cervical lordosis Thoracic/Lumbar Spine: thoracic and lumbar spine normal to inspection Skin General skin exam: no rashes or lesions noted Neuro General: patient oriented x3, gait normal, tone normal and moves all extremities Extrem General: Yes normal to inspection and Yes capillary refill normal Assessment & Plan Assessment & Plan (1) Prostate cancer: Comment: 06/22 low-grade low volume Code(s): C61 - Malignant neoplasm of prostate Category: Medical (2) Prostatitis: Code(s): N41.9 - Inflammatory disease of prostate, unspecified Category: Medical Plan Six-month follow-up imaging and lab work Orders: Orders Prostate Specific Antigen 6 Months C61 - Malignant neoplasm of prostate Testosterone, Total 6 Months C61 - Malignant neoplasm of prostate MR Prostate wo/w con 6 Months C61 - Malignant neoplasm of prostate Patient Instructions: This note is constructed using voice recognition software. While every effort has been made to ensure accuracy medical transcription radiology errors may have been included. Imaging studies, laboratory and physical exam results were discussed and reviewed in detail. No major barriers to patient understanding were identified. An opportunity to ask questions regarding the treatment plan was provided. All questions were answered. The patient expressed understanding and agreement with the above treatment plan. The patient is aware they should contact our office by phone for worsening of their current condition or the appearance of new urologic symptoms. Compliance is encouraged with any medications and followup testing that is ordered. It is a privilege to participate in the urologic care of your patient. If you have any questions or concerns regarding treatment for the above conditions, or other urologic issues, please do not hesitate to contact me. The office telephone contact is [phone]. Sincerely, Dr Sreedhar Valverde MD, [facility] - Urology Compassionate Specialist Care for the Genitourinary System Coding Level of Care Code Est Pt Level 3 (00224) Complex EM visit Add On G2211 Diagnoses Prostate cancer C61 Prostatitis N41.9
--- OUTSIDE RECORDS SUMMARY | 2024-09-17 12:42 | XMS_ITS | Patient Health Record ---
Author Organization [facility] Address [address] [place] [address] Care Team Providers Care Range Scientist Name Role Phone PACHECO GOMEZ Primary Care Provider Bertha Peck Unavailable [phone] Allergies No Known Allergies Reason For Referral No Information Medications Medication SIG (Take, Route, Frequency, Duration) Notes Start Date End Date Status Sertraline HCl 100 MG as directed Orally as needed Active Xanax 0.5 MG 1 tablet Orally Twice a day Just prn Active Immunizations Vaccine Route Administration Date Status Comme nts Influenza Unknown 01/29/2021 Administered Social History Tobacco Use: Social History Observation Description Date Details (start date - stop date) Never Smoker NA - NA Tobacco Use/Smoking Question Answer Notes Patient is a nonsmoker Alcohol Screen Question Answer Notes Did you have a drink containing alcohol in the p ast year? No Points 0 Interpretation Negative Section Notes: Nonsmoker Problems Problem Type SNOMED Code ICD Code Onset Dates Problem Status W/U Status Risk Notes Problem 376040255 Encounter for screening for malignant neoplasm of colon (Z12.11) Active confirmed Problem 815237526167773 Preprocedural examination (Z01.818) Active confirmed Problem Diverticulosis of colon (455329167) Diverticulosis of colon (K57.30) Active confirmed Problem 829416591 Gastroesophageal reflux disease, unspecified whether esophagitis present (K21.9) Active confirmed Plan Of Treatment Pending Test Test Name Order Date Pathology 06/07/2021 Future Test Test Name Order Date UPPER GI ENDOSCOPY 03/23/2021 COLONOSCOPY 03/23/2021 Insurance Providers Payer Name Payer Address Payer Phone Subscriber Number Group Number Insured Name Patient Relationship to Insured Coverage Start Date Coverage End Date [facility] [address] [place], [place] [id number] CLARIBEL ROBERTS Self - patient is the insured Medical (General) History Medical History History ICD Code Denies DE,DM,CVA,Lung disease,renal dise ase Anxiety Depression GERD Surgical History Surgery Date(Month/Year) Shoulder-right 05/2020
== END 2024-09-17 12:14 | disposition home or self-care (01) ==
PROVIDERS: PCP Nurse Practitioner Family; Visit Provider Urology
DX: C61 Malignant neoplasm of prostate (principal); N41.9 Inflammatory disease of prostate, unspecified
CPT/HCPCS: 99213